=== PATIENT | female | born 1950 | race Two or more races ===

== ENCOUNTER 2023-07-12 10:16 | Outpatient (OUT) | payer MEDICARE, SELFPAY ==
--- NOTE | 2023-07-12 10:45 | MM_ITS ---
Patient Name: ANGELA JUAREZ MR#: [id number] : 1950 Exam Date: 07/12/2023 Ordering Doctor: DR DAVID VALLEJO RADIOLOGY REPORT PROCEDURE: MM TOMOSYNTHESIS SCREENING BI COMPARISON: MG MAMM SCREEN 3D SANDY CAD, 07/07/2022. MG MAMM SCREEN 3D SANDY CAD, 06/26/2021. MG MAMM SCREEN SANDY W CAD, 06/25/2020. MG MAMM SCREEN SANDY W CAD, 02/24/2013. INDICATIONS: screening Calculator Name NCI Breast Cancer Risk Assessment Tool 5 Year Breast Cancer Risk 1.30% Lifetime Breast Cancer Risk 3.50% Personal Breast Cancer No Personal Ovarian Cancer No Treatments None Family Cancers Brother with colon cancer at age 63; Daughter with uterine cancer at age 4; Father with prostate cancer at age 65; Brother with leukemia cancer at age 50. LOCATION: [facility] BREAST COMPOSITION: Scattered areas fibroglandular density. FINDINGS: DIAGNOSTIC CATEGORY 1--NEGATIVE. RIGHT BREAST: No significant suspicious finding. No significant change has occurred. LEFT BREAST: No significant suspicious finding. No significant change has occurred. RECOMMENDATIONS: ROUTINE MAMMOGRAM AND CLINICAL EVALUATION IN 12 MONTHS. PLEASE NOTE: A NORMAL MAMMOGRAM DOES NOT EXCLUDE THE POSSIBILITY OF BREAST CANCER. A CLINICALLY SUSPICIOUS PALPABLE LUMP SHOULD BE BIOPSIED. Dictated by: Keron Ahmadi M.D. on 07/13/2023 at 13:08 Approved by: Keron Ahmadi M.D. on 07/13/2023 at 13:11
== END 2023-07-12 10:17 | disposition home or self-care (01) ==
LOC: MAMMO 10:16
PROVIDERS: PCP Family Medicine; Visit Provider Family Medicine
DX: Z12.31 Encounter for screening mammogram for malignant neoplasm of breast (principal); Z80.0 Family history of malignant neoplasm of digestive organs; Z80.8 Family history of malignant neoplasm of other organs or systems; Z80.42 Family history of malignant neoplasm of prostate; Z80.6 Family history of leukemia
CPT/HCPCS: 77063; 77067

== ENCOUNTER 2024-07-19 10:48 | Outpatient (OUT) | payer MEDICARE, SELFPAY ==
--- NOTE | 2024-07-19 10:51 | MM_ITS ---
Patient Name: ANGELA JUAREZ MR#: [id number] : 1950 Exam Date: 07/19/2024 Ordering Doctor: DR DAVID VALLEJO RADIOLOGY REPORT PROCEDURE: MM TOMOSYNTHESIS SCREENING BI COMPARISON: MG MAMM SCREEN 3D SANDY CAD, 07/07/2022. MM TOMOSYNTHESIS SCREENING BI, 07/12/2023. INDICATIONS: Screening for malignant neoplasm Calculator Name NCI Breast Cancer Risk Assessment Tool 5 Year Breast Cancer Risk 1.30% Lifetime Breast Cancer Risk 3.30% Personal Breast Cancer No Personal Ovarian Cancer No Treatments None Family Cancers Brother with colon cancer at age 63; Daughter with uterine cancer at age 4; Father with prostate cancer at age 65; Brother with leukemia cancer at age 50. LOCATION: [facility] BREAST COMPOSITION: There are scattered areas of fibroglandular density. FINDINGS: DIAGNOSTIC CATEGORY 2--BENIGN FINDING. NO CHANGE FROM COMPARISON. Scattered benign-appearing calcifications are present. Scattered benign-appearing lymph nodes are present. RIGHT BREAST: No significant suspicious finding. LEFT BREAST: No significant suspicious finding. RECOMMENDATIONS: ROUTINE MAMMOGRAM AND CLINICAL EVALUATION IN 12 MONTHS. PLEASE NOTE: A NORMAL MAMMOGRAM DOES NOT EXCLUDE THE POSSIBILITY OF BREAST CANCER. A CLINICALLY SUSPICIOUS PALPABLE LUMP SHOULD BE BIOPSIED. Dictated by: Darryl Conn MD on 07/19/2024 at 13:54 Approved by: Darryl Conn MD on 07/19/2024 at 13:58
--- OUTSIDE RECORDS SUMMARY | 2024-07-19 10:58 | XMS_ITS | CCD ---
Author Organization [facility] Care Team Providers Care Forensic Psychologist Name Role Phone Dano Plasencia Unavailable DO Jeff Orellana Primary Care Provider [phone] MD Dano Plasencia Attending Provider [phone] JEFF ORELLANA Primary Care Physician GENEVIEVE, DR JEFF Childress Admitting Unavailable FURLONG, DR JEFF Childress Attending Unavailable FURLONG, DR JEFF Childress Primary Care Unavailable FURLONG, DR JEFF Childress Consulting Unavailable Furlong Jeff DIANE Primary Care Provider [phone] JEFF ORELLANA Referring Unavailable FURLONGJEFF Primary Care Unavailable MIHIR MCGEE Referring Unavailable FURLONG, JEFF Childress Primary Care Unavailable NEO RIVERA Attending Unavailab le JEFF ORELLANA Attending Unavailable FURLOJEFF NICHOLAS Referring Unavailable FURLONG, JEFF Childress Primary Care Unavailable JOVANALONG, JEFF Childress Referring Unavailable FURLONG, JEFF Childress Primary Care Unavailable FURLONGJEFF Attending Unavailable JOVANALONG, JEFF Childress Referring Unavailable FURLONG, JEFF Childress Primary Care Unavailable JovanaloDO Jeff nicholas Primary Care Provider MD Dano Plasencia Attending Provider Dano Plasencia Attending Unavailable Jeff Orellana Primary Care Unavailable Dano Plasencia Admitting Unavailable Dano Plasencia Attending Unavailable Jeff Orellana Primary Care Unavailable Dano Plasencia Admitting Unavailable Allergies Allergy Classification Reported Allergen(s) Allergy Type Date of Onset Reaction(s) Facility (6 sources) Ciprofloxacin; Translations: [ciprofloxacin] Drug Allergy 2 Swelling, Angioedema (disorder) [facility] (2 sources) Ciprofloxacin; Translations: [Cipro] Drug Allergy 6 [facility] (9 sources) Ciprofloxacin; Translations: [CIPROFLOXACIN HCL] Drug Allergy 0 Angioedema PST [employer] Work Phone: (1 source) Ciprofloxacin Drug Allergy [address] [facility] Repository Medications Current Medications Medication Drug Class(es) Dates Sig (Normalized) Sig (Original) aspirin 81 mg delayed release oral tablet (6 sources) Platelet Aggregation Inhibitor, Nonsteroidal Anti-inflammatory Drug Start: 02-23-2023 take 1 tablet by mouth in the morning aspirin 81 mg Indications: Type 2 diabetes mellitus without complication, without long-term current use of insulin ([facility]) Take 1 tablet (81 mg total) by mouth in the morning. 150 tablet 2 02/23/2023 Active 0.5 ml dulaglutide 1.5 mg/ml auto-injector (4 sources) GLP-1 Receptor Agonist Start: 05-02-2024 Dulaglutide (Trulicity) 0.75 mg/0.5 mL pen injector Active 0.75 MG SUBCUT every week May 02, 2024 12:00am Start: 02-10-2024 inject 1.5 mg by sub cutaneous injection every week dulaglutide (TRULICITY) 1.5 mg/0.5 mL pen injector Indications: Type 2 diabetes mellitus without complication, without long-term current use of insulin ([facility]) Inject 1.5 mg under the skin once a week. 2 mL 5 02/10/2024 Active glipiZIDE 5 mg oral tablet (15 sources) Sulfonylurea Start: 05-18-2024 take 1 tablet by mouth in the morning, then take 1 tablet by mouth at bedtime glipiZIDE (GLUCOTROL) 5 mg tablet Take 1 tablet (5 mg total) by mouth in the morning and 1 tablet (5 mg total) before bedtime. 60 tablet 3 05/18/2024 Active Start: 02-09-2024 End: 05-18-2024 take 0.5 tablet by mouth in the morning, then take 0.5 tablet by mouth before mealtime glipiZIDE (GLUCOTROL) 10 mg tablet Indications: Type 2 diabetes mellitus without complication, without long-term current use of insulin [place] Take 0.5 tablets (5 mg total) by mouth in the morning and 0.5 tablets (5 mg total) in the evening. Take before meals. 02/09/2024 05/18/2024 Discontinued (Dose adjustment) Start: 06-02-2023 take 1 tablet by branden th three times daily before mealtime glipiZIDE (GLUCOTROL) 10 mg tablet TAKE 1 TABLET BY MOUTH THREE TIMES DAILY BEFORE MEAL(S) 270 tablet 1 06/02/2023 Active Start: 09-11-2020 take 10 mg by mouth once daily Glipizide Active 10 MG PO Daily October 27, 2021 12:00am glipiZIDE 10 MG as directed Orally tid Active glipiZIDE Active levothyroxine sodium 0.1 mg oral tablet (15 sources) l-Thyroxine Start: 12-08-2023 take 1 tablet by mouth once daily levothyroxine (SYNTHROID, LEVOTHROID) 100 MCG tablet Take 1 tablet by mouth once daily 90 tablet 2 12/08/2023 Active Start: 10-27-2021 End: 08-16-2023 take 1 tablet by mouth once daily Levothyroxine (Euthyrox) 100 mcg tablet Active 100 MCG PO Daily October 27, 2021 12:00am Start: 09-11-2020 take 1 tablet by branden th once daily Euthyrox 112 mcg (0.112 mg) oral tablet mcg tab(s), Oral, Daily, Refills(s) 0 Start Date: 09/11/20 Status: Ordered take 1 tablet by branden th once daily in the morning Levothyroxine Sodium 100 MCG 1 tablet in the morning on an empty stomach Orally Once a day Active Levothyroxine So dium Active lidocaine 0.05 mg/mg medicated patch (3 sources) Antiarrhythmic, Amide Local Anesthetic Start: 04-21-2023 apply 1 dose transdermal route once daily, then apply 1 dose transdermal route every twenty-four hours lidocaine (LIDODERM) 5 % Place 1 patch on the skin daily. Remove & Discard patch within 24 hours or as directed by MD Dunn patch 0 04/21/2023 Active lisinopril 40 mg oral tablet (16 sources) Angiotensin Converting Enzyme Inhibitor Start: 06-07-2024 take 1 tablet by mouth in the morning lisinopriL (PRINIVIL,ZESTR IL) 40 mg tablet Indications: Essential hypertension, benign TAKE 1 TABLET BY MOUTH IN THE MORNING 90 tablet 3 06/07/2024 Active Start: 12-02-2023 End: 06-07-2024 take 1 tablet by mouth in the morning lisinopriL (PRINIVIL,ZESTRIL) 40 mg tablet Indications: Essential hypertension, benign take 1 tablet by mouth in the morning 90 tablet 1 12/02/2023 06/07/2024 Discontinued Start: 08-25-2022 End: 09-05-2023 take 1 tablet by mouth in the morning lisinopriL (PRINIVIL,ZESTRIL) 40 mg tablet Indications: Essential hypertension, benign TAKE 1 TABLET BY MOUTH IN THE MORNING 90 tablet 0 09/05/2023 Active Start: 10-27-2021 take 10 mg by mouth once daily Lisinopril Active 10 MG PO Daily October 27, 2021 12:00am Start: 09-11-2020 take 1 mg by mouth o nce daily lisinopril 20 mg Tab mg tab(s), Oral, Daily, Refills(s) 0 Start Date: 09/11/20 Status: Ordered Lisinopril Activ e metFORMIN hydrochloride 1000 mg oral tablet (16 sources) Biguanide Start: 02-19-2024 End: 05-18-2024 take 1 tablet by mouth twice daily metFORMIN (GLUCOPHAGE) 1000 mg tablet Take 1 tablet by mouth twice daily 180 tablet 05/18/2024 Active Start: 09-11-2020 End: 08-16-2023 take 1000 mg by mouth twice daily Metformin Active 1000 MG PO Twice daily October 27, 2021 12:00am metFORMIN HCl Ac tive naproxen sodium 220 mg oral tablet (6 sources) Nonsteroidal Anti-inflammatory Drug Start: 02-23-2023 take 1 tablet by mouth every twelve hours as needed for pain naproxen sodium (ALEVE) 220 mg tablet Take 1 tablet (220 mg total) by mouth every 12 (twelve) hours as needed for pain. 30 tablet 02/23/2023 Active rosuvastatin calcium 20 mg oral tablet (14 sources) HMG-CoA Reductase Inhibitor Start: 10-27-2021 take 1 tablet by mouth once daily rosuvastatin (CRESTOR) 20 mg tablet Take 1 tablet by mouth once daily 90 tablet 1 04/16/2024 Active Start: 09-11-2020 take 1 mg by mouth once daily rosuvastatin 10 mg Tab mg tab(s), Oral, Daily, Refills(s) 0 Start Date: 09/11/20 Status: Ordered Rosuvastatin Pedro cium Active Vitamin B Complex (4 sources) Start: 09-07-2023 take 1 tablet by branden th in the morning b complex vitamins tablet Take 1 tablet by mouth in the morning. 09/07/2023 Active Start: 09-07-2023 take 1 tablet by branden th in the morning b complex vitamins tablet Take 1 tablet by mouth in the morning. 0 09/07/2023 Active Vitamin B Complex oral capsule (1 source) Start: 09-27-2023 Vitamin B Comp jennifer oral capsule Oral, Daily, Refill(s) 0 Start Date: 09/27/23 Status: Ordered Vitamin D 50,000 intl units (1.25 mg) oral capsule (2 sources) Start: 09-11-2020 take 1 capsule by mouth once daily Vitamin D 50,000 intl units (1.25 mg) oral capsule International_Unit cap(s), Oral, Daily, Refills(s) 0 Start Date: 09/11/20 Status: Ordered Problems Active Problems Problem Classification Problem Date Documented Date Episodic/Chronic Abdominal pain (8 sources) Abdominal discomfort; Translations: [Unspecified abdominal pain] Onset: 10-16-2021 Resolved: 10-16-2021 Episodic Diabetes mellitus without complication (12 sources) Diabetes mellitus; Translations: [Type 2 diabetes mellitus without complications] Onset: 08-25-2022 09-11-2020 Chronic Disorders of lipid metabolism (8 sources) Hyperlipidemia; Translations: [Hyperlipidemia, unspecified] Onset: 08-25-2022 09-11-2020 Chronic Diverticulosis and diverticulitis (8 sources) Diverticular disease; Translations: [Diverticulosis of large intestine] Onset: 02-13-2020 09-11-2020 Chronic Essential hypertension (13 sources) Benign essential hypertension; Translations: [Essential (primary) hypertension] Onset: 08-25-2022 09-11-2020 Chronic Hepatitis (2 sources) Steatohepatitis; Translations: [Nonalcoholic steatohepatitis (STRAUSS)] 05-02-2024 Chronic Nutritional deficiencies (8 sources) Vitamin D deficiency; Translations: [Vitamin D deficiency, unspecified] Onset: 08-25-2022 09-11-2020 Chronic Other diseases of bladder and urethra (1 source) Detrusor overactivity; Translations: [Overactive bladder] Onset: 09-27-2023 Chronic Other diseases of bladder and urethra (4 sources) Overactive bladder; Translations: [Overactive bladder] Onset: 02-08-2024 09-27-2023 Chronic Other liver diseases (4 sources) Steatosis of liver; Translations: [Fatty (change of) liver, not elsewhere classified] 05-02-2024 Chronic Other liver diseases (4 sources) Fatty (change of) liver, not elsewhere classified; Translations: [Other chronic nonalcoholic liver disease] Onset: 10-16-2021 Resolved: 10-16-2021 Chronic Other liver diseases (1 source) Cirrhosis of liver; Translations: [Unspecified cirrhosis of liver] 05-02-2024 Chronic Other liver diseases (1 source) Unspecified cirrhosis of liver; Translations: [Cirrhosis of liver without mention of alcohol] 05-02-2024 Chronic Other nervous system disorders (6 sources) Difficulty walking; Translations: [Difficulty in walking, not elsewhere classified] Onset: 03-09-2023 04-21-2023 Chronic Other nutritional; endocrine; and metabolic disorders (7 sources) Obesity caused by energy imbalance; Translations: [Other obesity due to excess calories] Onset: 02-23-2023 02-23-2023 Chronic Other nutritional; endocrine; and metabolic disorders (1 source) Other obesity due to excess calories; Translations: [Other obesity due to excess calories] Onset: 02-23-2023 Chronic Other nutritional; endocrine; and metabolic disorders (1 source) Body mass index (BMI) 33.0-33.9, adult; Translations: [Body mass index (BMI) 33.0-33.9, adult] Onset: 02-23-2023 Chronic Residual codes; unclassified (1 source) Family history of leukemia; Translations: [FAMILY HISTORY OF LEUKEMIA] Onset: 07-15-2022 Episodic Residual codes; unclassified (1 source) Family history of malignant neoplasm of prostate; Translations: [FAMILY HX MALIG NEOPLASM PROSTATE] Onset: 07-15-2022 Episodic Residual codes; unclassified (1 source) Family history of malignant neoplasm of other genital organs; Translations: [FAM HX MALIG NEOPLSM OTH GENIT ORGN] Onset: 07-15-2022 Episodic Thyroid disorders (11 sources) Hypothyroidism; Translations: [Hypothyroidism, unspecified] Onset: 08-25-2022 09-11-2020 Chronic Unclassified (1 source) Low blood sugars Onset: 12-27-2023 Past or Other Problems Problem Classification Problem Date Documented Date Episodic/Chronic Anal and rectal conditions (6 sources) Rectal pain; Translations: [Other specified diseases of anus and rectum] Onset: 03-09-2023 04-21-2023 Episodic Calculus of urinary tract (11 sources) Kidney stone; Translations: [Calculus of kidney] Onset: 05-03-2022 Episodic Genitourinary symptoms and ill-defined conditions (19 sources) Retention of urine; Translations: [Retention of urine, unspecified] Onset: 05-03-2022 Episodic Immunizations and screening for infectious disease (2 sources) Encounter for immunization; Translations: [Other specified vaccinations against streptococcus pneumoniae [pneumococcus]] Onset: 09-07-2023 09-07-2023 Episodic Mood disorders (6 sources) Mood disorders Onset: 05-26-2023 Resolved: 02-08-2024 05-26-2023 Other and unspecified benign neoplasm (6 sources) Polyp of ascending colon; Translations: [Polyp of colon] Onset: 02-13-2020 02-17-2022 Episodic Other and unspecified benign neoplasm (6 sources) History of polyp of colon; Translations: [Personal history of colonic polyps] Onset: 01-24-2022 01-24-2022 Episodic Other screening for suspected conditions (not mental disorders or infectious disease) (10 sources) Encounter for screening mammogram for malignant neoplasm of breast; Translations: [Patient encounter status] Onset: 09-26-2019 Episodic Sprains and strains (4 sources) Sprain of ligament of tarsometatarsal joint; Translations: [Sprain of tarsometatarsal ligament of left foot, subsequent encounter] Onset: 09-07-2023 09-07-2023 Episodic Results Test Name Value Interpretation Reference Range Facility US abdomen [facility] 05-10-2 024 US abdomen limited [facility] [address] [place] [id number] Ultrasound Report Signed Patient: Angela Juarez MR#: [id number] 6 : 1950 Acct:[id number] Age/Sex: 74 / F ADM Date: 05/10/24 Loc: Room: Type: [facility] Attending Dr: Dano Plasencia MD Ordering Provider: Dano Plasencia MD Date of Service: 05/10/24 US/US abdomen limited: K76.0 - Fatty (change of) liver, not elsewhere classified Copies to: Dano Plasencia MD LIMITED ABDOMINAL ULTRASOUND WITH ASSESSMENT OF RIGHT UPPER QUADRANT HISTORY: Fatty liver COMPARISON: None Negative ultrasound Flannery's sign reported. COMMON BILE DUCT: Mild 6 mm prominence of common bile duct. LIVER CONTOUR: Normal. LIVER PARENCHYMA: Hepatic steatosis. HEPATIC LESION: None INTRAHEPATIC BILIARY DUCTAL DILATATION No ductal dilatation identified. GALLSTONES: Shadowing gallstones GALLBLADDER SLUDGE: No gallbladder sludge. GALLBLADDER WALL: Normal thickness PERICHOLECYSTIC FLUID: None Pancreas: Unremarkable PORTAL VEIN: Normal blood flow. Liver size: Normal No RIGHT hydronephrosis identified. US/US abdomen limited IMPRESSION: Hepatic steatosis. Mild prominence of common bile duct. No intraluminal abnormality. No intrahepatic biliary ductal dilatation. Cholelithiasis. Impression dictated by: Chris Rankin M.D.05/10/2024 12:59 PM Dictation Location: [place] [address] Tech: Evita Hope Transcribed By: [facility] 05/10/24 1259 Dictated By: Chris Rankin DO 05/10/24 1257 Signed By: 05/10/24 1259 Normal [facility] [place] 10-04-2023 Screens [id number] Normal [facility] Ambulatory Visit Summaryon 0 09-27-2023 Ambulatory Visit Summary ANGELA JUAREZ :1950 Visit Date:09/27/2023 Ambulatory Visit Instructions Your Diagnosis Kidney stones OAB (overactive bladder) Tests Performed XR Abdomen 1 View -- Results Pending -- Please visit your patient portal for your results or contact your primary care physician. Your Care Team Attending Physician - LUCY RIVERA PA-C Primary Care Physician - JEFF ORELLANA DO This Is Your Medications List Contact prescribing physician if questions or concerns ergocalciferol (Vitamin D 50,000 intl units (1.25 mg) oral capsule) glipiZIDE (glipiZIDE 10 mg Tab) levothyroxine (Euthyrox 112 mcg (0.112 mg) oral tablet) lisinopril (lisinopril 20 mg Tab) metformin (metformin 1000 mg oral tablet) multivitamin (Vitamin B Complex oral capsule) rosuvastatin (rosuvastatin 10 mg Tab) Procedures Performed ESWL of kidney (10/02/2020), Colonoscopy (02/13/2020), Hysterectomy, Tubal ligation. Discharge Vitals Temperature (Temporal Artery) 36.8 ?C Heart Rate (Peripheral) 92 Blood Pressure 138/84 Height 153 cm Height 60 in Weight 81 kg Weight 178.2 lb BMI 34.6 What to do next You Need to Schedule the Following Appointments Follow Up with LUCY RIVERA PA-C, URL When: Where[facility] [address] [facility] [place] [address] Medications What How Much When Instructions Unchanged ergocalciferol (Vitamin D 50,000 intl units (1.25 mg) oral capsule) Every day Contact prescribing physician if questions or concerns Unchanged glipiZIDE (glipiZIDE 10 mg Tab) Every day Contact prescribing physician if questions or concerns Unchanged levothyroxine (Euthyrox 112 mcg (0.112 mg) oral tablet) Every day Contact prescribing physician if questions or concerns Unchanged lisinopril (lisinopril 20 mg Tab) Every day Contact prescribing physician if questions or concerns Unchanged metformin (metformin 1000 mg oral tablet) 2 times a day Contact prescribing physician if questions or concerns Unchanged multivitamin (Vitamin B Complex oral capsule) Every day Contact prescribing physician if questions or concerns Unchanged rosuvastatin (rosuvastatin 10 mg Tab) Every day Contact prescribing physician if questions or concerns Allergies Cipro (Angioedema) Problems Ongoing - Any problem that you are currently receiving treatment for. Benign essential hypertension Diabetes Diverticulosis Foul smelling urine Hyperlipidemia Hypothyroidism Incomplete bladder emptying Kidney stones OAB (overactive bladder) Vitamin D deficiency Weak urine stream Patient Survey You may receive a survey via text or e-mail asking about your office visit. Please share your experience with us by completing your survey. We appreciate your feedback and thank you for choosing us for your care. Education Materials Dietary Guidelines to Help Prevent Kidney Stones Kidney stones are deposits of minerals and salts that form inside your kidneys. Your risk of developing kidney stones may be greater depending on your diet, your lifestyle, the medicines you take, and whether you have certain medical conditions. Most people can lower their risks of developing kidney stones by following these dietary guidelines. Your dietitian may give you more specific instructions depending on your overall health and the type of kidney stones you tend to develop. What are tips for following this plan? Reading food labels ? Choose foods with no salt added or low-salt labels. Limit your salt (sodium) intake to less than 1,500 mg a day. ? Choose foods with calcium for each meal and snack. Try to eat about 300 mg of calcium at each meal. Foods that contain 200?500 mg of calcium a serving include: ? 8 oz (237 mL) of milk, calcium-fortifiedno n-dairy milk, and calcium-fortifiedfr uit juice. Calcium-fortified means that calcium has been added to these drinks. ? 8 oz (237 mL) of kefir, yogurt, and soy yogurt. ? 4 oz (114 g) of tofu. ? 1 oz (28 g) of cheese. ? 1 cup (150 g) of dried figs. ? 1 cup (91 g) of cooked broccoli. ? One 3 oz (85 g) can of sardines or mackerel. Most people need 1,000?1,500 mg of calcium a day. Talk to your dietitian about how much calcium is recommended for you. Shopping ? Buy plenty of fresh fruits and vegetables. Most people do not need to avoid fruits and vegetables, even if these foods contain nutrients that may contribute to kidney stones. ? When shopping for convenience foods, choose: ? Whole pieces of fruit. ? Pre-made salads with dressing on the side. ? Low-fat fruit and yogurt smoothies. ? Avoid buying frozen meals or prepared deli foods. These can be high in sodium. ? Look for foods with live cultures, such as yogurt and kefir. ? Choose high-fiber grains, such as whole-wheat breads, oat bran, and wheat cereals. Cooking ? Do not add salt to food when cooking. Place a salt shaker on the table and allow ea (more content not included)... Normal [facility] Patient Educationon 09-27-19 Patient Education Nephrology Dietary Guidelines to Help Prevent Kidney Stones Kidney stones are deposits of minerals and salts that form inside your kidneys. Your risk of developing kidney stones may be greater depending on your diet, your lifestyle, the medicines you take, and whether you have certain medical conditions. Most people can lower their risks of developing kidney stones by following these dietary guidelines. Your dietitian may give you more specific instructions depending on your overall health and the type of kidney stones you tend to develop. What are tips for following this plan? Reading food labels ? Choose foods with no salt added or low-salt labels. Limit your salt (sodium) intake to less than 1,500 mg a day. ? Choose foods with calcium for each meal and snack. Try to eat about 300 mg of calcium at each meal. Foods that contain 200?500 mg of calcium a serving include: ? 8 oz (237 mL) of milk, calcium-fortifiedno n-dairy milk, and calcium-fortifiedfr uit juice. Calcium-fortified means that calcium has been added to these drinks. ? 8 oz (237 mL) of kefir, yogurt, and soy yogurt. ? 4 oz (114 g) of tofu. ? 1 oz (28 g) of cheese. ? 1 cup (150 g) of dried figs. ? 1 cup (91 g) of cooked broccoli. ? One 3 oz (85 g) can of sardines or mackerel. Most people need 1,000?1,500 mg of calcium a day. Talk to your dietitian about how much calcium is recommended for you. Shopping ? Buy plenty of fresh fruits and vegetables. Most people do not need to avoid fruits and vegetables, even if these foods contain nutrients that may contribute to kidney stones. ? When shopping for convenience foods, choose: ? Whole pieces of fruit. ? Pre-made salads with dressing on the side. ? Low-fat fruit and yogurt smoothies. ? Avoid buying frozen meals or prepared deli foods. These can be high in sodium. ? Look for foods with live cultures, such as yogurt and kefir. ? Choose high-fiber grains, such as whole-wheat breads, oat bran, and wheat cereals. Cooking ? Do not add salt to food when cooking. Place a salt shaker on the table and allow each person to add their own salt to taste. ? Use vegetable protein, such as beans, textured vegetable protein (TVP), or tofu, instead of meat in pasta, casseroles, and soups. Meal planning ? Eat less salt, if told by your dietitian. To do this: ? Avoid eating processed or pre-made food. ? Avoid eating fast food. ? Eat less animal protein, including cheese, meat, poultry, or fish, if told by your dietitian. To do this: ? Limit the number of times you have meat, poultry, fish, or cheese each week. Eat a diet free of meat at least 2 days a week. ? Eat only one serving each day of meat, poultry, fish, or seafood. ? When you prepare animal proteins, cut pieces into small portion sizes. For most meat and fish, one serving is about the size of the palm of your hand. ? Eat at least five servings of fresh fruits and vegetables each day. To do this: ? Keep fruits and vegetables on hand for snacks. ? Eat one piece of fruit or a handful of berries with breakfast. ? Have a salad and fruit at lunch. ? Have two kinds of vegetables at dinner. ? You may be told to limit foods that are high in a substance called oxalate. These include: ? Spinach (cooked), rhubarb, beets, sweet potatoes, and [place] chard. ? Peanuts. ? Potato chips, [place] fries, and baked potatoes with skin on. ? Nuts and nut products. ? Chocolate. ? If you regularly take a diuretic medicine, make sure to eat at least 1 or 2 servings of fruits or vegetables that are high in potassium each day. These include: ? Avocado. ? Banana. ? Gooding, prune, carrot, or tomato juice. ? Baked potato. ? Cabbage. ? Beans and split peas. Lifestyle ? Drink enough fluid to keep your urine pale yellow. This is the most important thing you can do. Spread your fluid intake throughout the day. ? If you drink alcohol: ? Limit how much you have to: ? 0?1 drink a day for women who are not . ? 0?2 drinks a day for men. ? Know how much alcohol is in your drink. In the [place] one drink equals one 12 oz bottle of beer (355 mL), one 5 oz glass of wine (148 mL), or one 1? oz glass of hard liquor (44 mL). ? Lose weight if told by your health care provider. Work with your dietitian to find an eating plan and weight loss strategies that work best for you. General information ? Talk to your health care provider and dietitian about taking daily supplements. Depending on your health and the cause of your kidney stones, you may be told: ? Do not take high-dose supplements of vitamin C (1,000 mg a day or more). ? To take a calcium supplement. ? To take a daily probiotic supplement. ? To take other supplements such as magnesium, fish oil, or vitamin B6. ? Take jtvh-seg-wlcyamo and prescription medicines only as told by your health care provider. These include supplements. What foods sh (more content not included)... Normal [facility] Urology Office/Clinic Noteon 09-27-2023 Urology Office/Clinic Note Chief Complaint 1 year F/U with KUB HPI Staff 1 yr KUB done 09/20/23 @ [facility] Dx Kidney stones * No Urology medications B&BSQ 19 Dysuria: _Denies Incomplete bladder emptying: sometimes Hematuria: denies visible blood Frequency: once hour when home, at work 9-10x daily Urgency: _sometimes Nocturia: once nightly Stream: _denies hesitation, weaker stream Leaking: denies Post void dripping: denies Wearing pads/ Depends: denies Urge incontinence: denies Stress incontinence: denies Incontinence without Sensory Awareness: denies Abdominal pain: denies Flank pain: denies Sexual complaints: denies History of Present Illness staff HPI reviewed and agree. Review of Systems PHQ Score Initial Depression Screen Score: 0 SCORE no fever, chills, malaise, myalgia. no rash/lesions. no chest pain, palpitations, or SOB. no abdominal pain, nausea, vomiting. no unilateral calf swelling, redness, pain Physical Exam Vitals & Measurements T: 36.8 ?C(Temporal Artery) HR: 92(Peripheral) BP: 138/84 HT: 60 in HT: 153 cm WT: 81 kg WT: 178.2 lb BMI: 34.6 General: nontoxic, NAD Mouth: moist mucosa Lungs: normal respiratory effort Cardio: regular rate, good distal perfusion Abdomen: nondistended, no suprapubic distention or tenderness, no CVA tenderness Neurologic: Grossly normal Skin: No rashes or suspicious lesions Assessment/Plan PRW pt 1. Kidney stones (N20.0: Calculus of kidney) S/p Rt ESWL done 10/02/20 due to a 7 mm stone. KUB 05/01/22 shows suspected small bilateral renal stones 24 hour urine 08/05/22: just low volume. KUB done 09/15/22 shows small right renal stones measuring up to 0.3 cm in size, unchanged. KUB 09/20/23 similar right renal calculi measuring up to 3 mm. UA today negative Has been drinking water and adding lemon, usually 4-5oz/day. SG today 1.010 no recent flank pain, gross hematuria, stone pain/stone passage sx -Follow up in 18 mos with KUB 2. OAB (overactive bladder) (N32.81: Overactive bladder) BBS Latest A1c 08/2023 - 6.8 does admit to some intermittent constipation Voiding very frequently during the day. Typically once per hour. 1-2 cups of coffee per day, varies whether decaf or caff. discussed bladder irritants. discussed bowel/bladder connection. discussed OAB med options, common side effects/risks. -Not bothersome enough to warrant tx at this time. Pt to call if sx worsen. Follow-up With When Contact Information MIGUEL LARSON, LUCY Caceres, URL [address] [place] [address] Additional Instructions: 18 mos w/ KUB Patient Education Dietary Guidelines to Help Prevent Kidney Stones Documentation recorded by the david Chua accurately reflects the services(s) I performed and decisions made by me. Authenticated by Lucy Rivera PA-C on 09/27/2023 15:05:28. Radha Montanez, personally scribed for Lucy Rivera PA-C on 09/27/2023 14:57:46. . Problem List/Past Medical History Ongoing Benign essential hypertension Diabetes Diverticulosis Foul smelling urine Hyperlipidemia Hypothyroidism Incomplete bladder emptying Kidney stones OAB (overactive bladder) Vitamin D deficiency Weak urine stream Historical No qualifying data Procedure/Surgical History ESWL of kidney (10/02/2020), Colonoscopy (02/13/2020), Hysterectomy, Tubal ligation. Medications Euthyrox 112 mcg (0.112 mg) oral tablet, Oral, Daily glipiZIDE 10 mg Tab, Oral, Daily lisinopril 20 mg Tab, Oral, Daily metformin 1000 mg oral tablet, Oral, BID rosuvastatin 10 mg Tab, Oral, Daily Vitamin B Complex oral capsule, Oral, Daily Vitamin D 50,000 intl units (1.25 mg) oral capsule, Oral, Daily Allergies Cipro (Angioedema) Social History Alcohol - Denies Alcohol Use, 09/15/2020 Tobacco - Denies Tobacco Use, 09/15/2020 Former smoker, quit more than 30 days ago, quit 30 years ago Tobacco Use:., 09/27/2023 Family History COPD: Brother. Diabetes mellitus type 2: Brother. Epilepsy: Brother. Hypertension: Mother and Brother. Prostate cancer: Father. Stroke: Mother. Immunizations Vaccine Date Status pneumococcal 20-valent conjugate vaccine 09/07/2023 Recorded influenza virus vaccine, inactivated 05/19/2022 Recorded SARS-CoV-2 (COVID-19) mRNA-1273 vaccine 11/18/2021 Recorded SARS-CoV-2 (COVID-19) mRNA-1273 vaccine 10/23/2020 Recorded SARS-CoV-2 (COVID-19) mRNA-1273 vaccine 09/25/2020 Recorded influenza virus vaccine, inactivated 05/29/2020 Recorded influenza virus vaccine, inactivated 04/30/2020 Recorded influenza virus vaccine, inactivated 04/21/2020 Recorded Lab Results Ambulatory Point of Care Results Bilirubin Urine Dipstick: Negative (09/27/23 14:19:00) Blood Urine Dipstick: Negative (09/27/23 14:19:00) Glucose Urine Dipstick: Trace 100 mg/dl (09/27/23 14:19:00) Ketones Urine Dipstick: Negative (09/27/23 14:19:00) Leukocytes Ur (more content not included)... Normal [facility] Comment on above: Result Comment: Elec tronically Signed By: LUCY RIVERA PA-C\.br\Date and Time Signed: 09/27/23 15:05 EDT\.br\Electronically Co-Signed By: Radha Chua\.br\Date and Time Co-Signed: 09/27/23 14:58 EDT RAD - MISCon 09-21-2023 RAD - MISC [id number] 7B#[id number] Normal [facility] XR ABDOMEN AP 1 VWon 024 XR ABDOMEN AP 1 VW XR ABDOMEN AP 1 VW XR ABDOMEN AP 1 VW HISTORY: Nephrolithiasis COMPARISON: Abdominal radiographs 09/15/2022, 05/01/2022 TECHNIQUE: Frontal radiographs of the abdomen obtained. FINDINGS: Unremarkable bowel gas pattern. Unchanged radiopaque densities measuring up to 3 mm project over the right renal shadow. The left renal shadow is obscured by overlying bowel gas and fecal material. Multiple round densities project over the expected location of the left ureter; however, given stability, these are likely related to phleboliths. Additional phleboliths within the pelvis. Fluffy calcified density material adjacent to the greater trochanter of the right femur, similar to prior, this may be seen in hydroxyapatite deposition. IMPRESSION: Similar right renal calculi measuring up to 3 mm. Additional findings as described. Approved by Resident Chun Lira MD on 09/20/2023 2:33 PM IOg DO have personally reviewed the image(s) and agree with and/or edited the report 4 Finalized by Og Ponce DO on 09/20/2023 2:45 PM Normal [facility] BASIC METABOLIC PANLon 09-07 Anion gap [Moles/Vol] 10 mmol/L Normal 5-15 [facility] [employer] [facility] Comment on above: Performed By: #### B MP, 3016-3, 3024-7 #### [facility] ([id number]) [address], [address] [place] [address] Calcium [Mass/Vol] 9.5 mg/dL Normal 8.5-10.5 [facility] Comment on above: Performed By: #### Hayley RIVERA, 3015-3, 3023-7 #### [facility] ([id number]) [address], [address] [place] [address] Chloride [Moles/Vol] 106 mmol/L Normal 98-109 [facility] Comment on above: Performed By: #### Hayley RIVERA, 3015-3, 3023-7 #### [facility] ([id number]) [address], [address] [place] [address] CO2 [Moles/Vol] 26 mmol/L Normal 22-32 [facility] Comment on above: Performed By: #### Hayley RIVERA, 3015-3, 7 #### [facility] ([id number]) [address], [address] [place] [address] Creatinine [Mass/Vol] 0.86 mg/dL Normal 0.40-1.00 [facility] Comment on above: METHOD TRACEABLE TO IDMS STANDARD Result Comment: METH OD TRACEABLE TO IDMS STANDARD Performed By: #### Hayley RIVERA, 3015-3, 7 #### [facility] ([id number]) [address], [address] [place] [address] Glucose [Mass/Vol] 129 mg/dL High 65-99 [facility] Comment on above: Performed By: #### Hayley RIVERA, 3015-3, 3023-7 #### [facility] ([id number]) [address], [address] [place] [address] Potassium [Moles/Vol] 4.5 mmol/L Normal 3.5-5.0 [facility] Comment on above: Performed By: #### Hayley RIVERA, 3015-3, 3023-7 #### [facility] ([id number]) [address], [address] [place] [address] Sodium [Moles/Vol] 142 mmol/L Normal 134-146 [facility] Comment on above: Performed By: #### B MIGUEL, 3016-3, 3024-7 #### [facility] ([id number]) [address] [address] Urea nitrogen [Mass/Vol] 16 mg/dL Normal 5-27 [facility] Comment on above: Performed By: #### B MIGUEL, 3016-3, 3023-7 #### [facility] ([id number]) [address] [facility], [address] [address] GFR/1.73 sq M.predicted among non-blacks MDRD (S/P/Bld) [Vol rate/Area] 72 mL/min/{1.73_m2} Normal >59 [facility] Comment on above: Result Comment: Reported eGFR is based on the CKD-EPI 2020 equation that does not use a race coefficient. Performed By: #### B MIGUEL, 3016-3, 3023-7 #### [facility] ([id number]) [address] [address] Basic Metabolic Panelon 08-19 eGFR (CKD-EPI)non-race dependent 72 - PINF [facility] Comment on above: Reported eGFR is based on the CKD-EPI 1 equation that does not use a race coefficient. Interpretation and review of laboratory results Abnormal [facility] Free T4 [Mass/Vol]on 024 [facility] HGB A1C (GLYCO-HGB)on 2023 HbA1c (Bld) [Mass fraction] 6.8 % High 4.4-5.6 [facility] Comment on above: NOTE ADA Guidelines Result HgbA1c Normal : less than 5.7 % Prediabetes : 5.7 % to 6.4 % Diabetes : > 6.4 % Use with caution in patients with abnormal hemoglobin variants as the half-life of red blood cells and in vivo glycation rates are affected. Result Comment: NOTE ADA Guidelines Result HgbA1c Normal : less than 5.7 % Prediabetes : 5.7 % to 6.4 % Diabetes : > 6.4 % Use with caution in patients with abnormal hemoglobin variants as the half-life of red blood cells and in vivo glycation rates are affected. Performed By: #### Hayley RIVERA, 3016-3, 3024-7 #### [facility] ([id number]) [address], [address] [place] [address] Glucose [Mass/Vol] 148 mg/dL Normal [facility] Comment on above: Performed By: #### Hayley RIVERA, 6-3, 3024-7 #### [facility] ([id number]) [address], [address] [place] [address] Hemoglobin A1con 09-07-2023 Average glucose Estimated from glycated hemoglobin (Bld) [Mass/Vol] 148 mg/dL [facility] Interpretation and review of laboratory results Abnormal [facility] - Chemistry and C hemistry - challengeon 09-07-2023 Free T4 [Mass/Vol] 1.00 ng/dL Normal 0.61-1.60 [facility] Comment on above: Performed By: #### Hayley RIVERA, 3016-3, 3024-7 #### [facility] ([id number]) [address], [address] [place] [address] TSHon 09-07-2023 TSH Qn 2.41 m[IU]/L [facility] TSH Qnon 09-07-2023 [facility] TSH 2.41 uIU/mL Normal 0.49-4.67 [facility] Comment on above: Performed By: #### Hayley RIVERA, 3016-3, 3024-7 #### [facility] ([id number]) [address], [address] [place] [address] MG MAMM SCREEN 3D SANDY CADon 07-07-2022 MG MAMM SCREEN 3D SANDY CAD Patient: ANGELA JUAREZ Exam Date: 07/07/2022 : 1950 Gender:F Ordering : DR JEFF ORELLANA Admission #: [id number] Family : Order #: [id number] CLICK HERE TO VIEW EXAM RADIOLOGY REPORT PROCEDURE: MAMMOGRAM SCREENING 3D BILATERAL CAD COMPARISON: MG MAMM SCREEN SANDY W CAD, 06/25/2020. MG MAMM SCREEN 3D SANDY CAD, 06/26/2021. INDICATIONS: Calculator Name NCI Breast Cancer Risk Assessment Tool 5 Year Breast Cancer Risk 1.20% Lifetime Breast Cancer Risk 3.70% Personal Breast Cancer No Personal Ovarian Cancer No Treatments None Family Cancers Daughter with uterine cancer at age 4; Father with prostate cancer at age 65; Brother with leukemia cancer at age 50. LOCATION: [facility] BREAST COMPOSITION: Scattered areas fibroglandular density. FINDINGS: DIAGNOSTIC CATEGORY 1--NEGATIVE. NO CHANGE FROM COMPARISON ASSESSMENT. Scattered benign-appearing calcifications are present. Scattered benign-appearing lymph nodes are present. RIGHT BREAST: No significant suspicious finding. LEFT BREAST: No significant suspicious finding. RECOMMENDATIONS: ROUTINE MAMMOGRAM AND CLINICAL EVALUATION IN 12 MONTHS. PLEASE NOTE: A NORMAL MAMMOGRAM DOES NOT EXCLUDE THE POSSIBILITY OF BREAST CANCER. A CLINICALLY SUSPICIOUS PALPABLE LUMP SHOULD BE BIOPSIED. Dictated by: Darryl Conn MD on 07/15/2022 at 07:46 Approved by: Darryl Conn MD on 07/15/2022 at 07:57 Normal [facility] COMPREHENSIVE METABOLIC PANE Stan 03-11-2022 Albumin [Mass/Vol] 4.4 g/dL Normal 3.6-5.1 [facility] Comment on above: Performed By: #### 4 87, 45843, 6167 #### [facility] [address], [address] [place] [address] [employer] Custodian: Jacek Dodge MD Albumin/Globulin [Mass ratio] 1.5 {ratio} Normal 1.0-2.5 [facility] Comment on above: Performed By: #### 4 20, 16734, 0794 #### [facility] [address], [address] [place] [address] [employer] Custodian: Jacek Dodge MD ALP [Catalytic activity/Vol] 117 U/L Normal 37-153 [facility] Comment on above: Performed By: #### 4 96, 84605, 7600 #### [facility] of [address], [address] [place] [address] [employer] Custodian: Jacek Dodge MD ALT [Catalytic activity/Vol] 25 U/L Normal 6-29 [facility] Comment on above: Performed By: #### 4 96, 46383, 7600 #### [facility] of [address], [address] [place] [address] [employer] Custodian: Jacek Dodge MD AST [Catalytic activity/Vol] 35 U/L Normal 10-35 [facility] Comment on above: Performed By: #### 4 96, 37524, 7600 #### [facility] of [place] [address] [employer] Custodian: Jacek Dodge MD Bilirubin [Mass/Vol] 0.4 mg/dL Normal 0.2-1.2 [facility] Comment on above: Performed By: #### 4 96, 15879, 7600 #### [facility] of [address], [address] [place] [address] [employer] Custodian: Jacek Dodge MD BUN/CREATININE RATIO NOT APPLICABLE Normal 6-22 [facility] Comment on above: Performed By: #### 4 96, 29401, 7600 #### [facility] of [address], [address] [place] [address] [employer] Custodian: Jacek Dodge MD Calcium [Mass/Vol] 9.5 mg/dL Normal 8.6-10.4 [facility] Comment on above: Performed By: #### 4 96, 33679, 7600 #### [facility] of [place] [address] [employer] Custodian: Jacek Dodge MD Chloride [Moles/Vol] 105 mmol/L Normal 98-110 [facility] Comment on above: Performed By: #### 4 96, 42112, 7600 #### [facility] of [address], [address] [place] [address] [employer] Custodian: Jacek Dodge MD CO2 [Moles/Vol] 26 mmol/L Normal 20-32 [facility] Comment on above: Performed By: #### 4 96, 89835, 7600 #### [facility] [place] [address] [employer] Custodian: Jacek Ddoge MD Creatinine [Mass/Vol] 0.78 mg/dL Normal 0.50-1.[address] [facility] Comment on above: Performed By: #### 4 96, 25068, 7600 #### [facility] [address], [address] [place] [address] [employer] Custodian: Jacek Dodge MD GFR/1.73 sq M.predicted among non-blacks MDRD (S/P/Bld) [Vol rate/Area] 82 mL/min/{1.73_m2} Normal > OR = 60 [facility] Comment on above: Result Comment: The eGFR is based on the CKD-EPI 2020 equation. To calculate the new eGFR from a previous Creatinine or Cystatin C result, go to https://www.kidney.org/professionals/ kdoqi/gfr%5Fcalculator Performed By: #### 4 96, 68574, 7600 #### [facility] [place] [address] [employer] Custodian: Jacek Dodge MD Globulin (S) [Mass/Vol] 2.9 g/dL Normal 1.9-3.7 [facility] Comment on above: Performed By: #### 4 96, 39541, 7600 #### [facility] [place] [address] [employer] Custodian: Jacek Dodge MD Glucose [Mass/Vol] 157 mg/dL High 65-99 [facility] Comment on above: Result Comment: Fasting reference interval For someone without known diabetes, a glucose value >125 mg/dL indicates that they may have diabetes and this should be confirmed with a follow-up test. Performed By: #### 4 96, 52217, 7600 #### [facility] [place] [address] [employer] Custodian: Jacek Dodge MD Potassium [Moles/Vol] 4.2 mmol/L Normal 3.5-5.[address] [facility] Comment on above: Performed By: #### 4 96, 04823, 7600 #### [facility] [address], [address] [place] [address] [employer] Custodian: Jacek Dodge MD Protein [Mass/Vol] 7.3 g/dL Normal 6.1-8.1 [facility] Comment on above: Performed By: #### 4 96, 39471, 7600 #### [facility] [place] [address] [employer] Custodian: Jacek Dodge MD Sodium [Moles/Vol] 139 mmol/L Normal 135-146 [facility] Comment on above: Performed By: #### 4 96, 17980, 7600 #### [facility] [place] [address] [employer] Custodian: Jacek Dodge MD Urea nitrogen [Mass/Vol] 15 mg/dL Normal 7-25 [facility] Comment on above: Performed By: #### 4 96, 81426, 7600 #### [facility] [place] [address] [employer] Custodian: Jacek Dodge MD HEMOGLOBIN A1con 03-11-2022 HEMOGLOBIN A1c 7.8 % of total Hgb High <5.7 [facility] Comment on above: Result Comment: For someone without known diabetes, a hemoglobin A1c value of 6.5% or greater indicates that they may have diabetes and this should be confirmed with a follow-up test. For someone with known diabetes, a value <7% indicates that their diabetes is well controlled and a value greater than or equal to 7% indicates suboptimal control. A1c targets should be individualized based on duration of diabetes, age, comorbid conditions, and other considerations. Currently, no consensus exists regarding use of hemoglobin A1c for diagnosis of diabetes for children. Performed By: #### 4 96, 26735, 7600 #### [facility] [address], [address] [place] [address] [employer] Custodian: Jacek Dodge MD LIPID PANEL, [facility] 02-16 Cholesterol [Mass/Vol] 163 mg/dL Normal <200 [facility] Comment on above: Order Comment: FASTI NG:YES FASTING: YES Performed By: #### 4 96, 92850, 7600 #### [facility] [address], [address] [place] [address] [employer] Custodian: Jacek Dodge MD Cholesterol in HDL [Mass/Vol] 58 mg/dL Normal > OR = 50 [facility] Comment on above: Order Comment: FASTI NG:YES FASTING: YES Performed By: #### 4 96, 34875, 7600 #### [facility] [place] [address] [employer] Custodian: Jacek Dodge MD Cholesterol in LDL [Mass/Vol] 81 mg/dL Normal [facility] Comment on above: Order Comment: FASTI NG:YES FASTING: YES Result Comment: Refe rence range: <100 Desirable range <100 mg/dL for primary prevention; <70 mg/dL for patients with CHD or diabetic patients with > or = 2 CHD risk factors. LDL-C is now calculated using the Tree-Jasmyn calculation, which is a validated novel method providing better accuracy than the Friedewald equation in the estimation of LDL-C. Tree EMMANUEL et al. JESSICA. 2013;310(19): 3287-4159 (http://education.eLama.G2 Crowd/faq/HXJ831) Performed By: #### 4 96, 10618, 7600 #### [facility] [address], [address] [place] [address] [employer] Custodian: Jacek Dodge MD Cholesterol.total/Jeanine sterol in HDL [Mass ratio] 2.8 {ratio} Normal <5.0 [facility] Comment on above: Order Comment: FASTI NG:YES FASTING: YES Performed By: #### 4 96, 64762, 7600 #### [facility] [address], [address] [place] [address] [employer] Custodian: Jacek Dodge MD NON HDL CHOLESTEROL 105 mg/dL (calc) Normal <130 [facility] Comment on above: Order Comment: FASTI NG:YES FASTING: YES Result Comment: For patients with diabetes plus 1 major ASCVD risk factor, treating to a non-HDL-C goal of <100 mg/dL (LDL-C of <70 mg/dL) is considered a therapeutic option. Performed By: #### 4 96, 42925, 7600 #### [facility] [address], [address] [place] [address] [employer] Custodian: Jacek Dodge MD Triglyceride [Mass/Vol] 138 mg/dL Normal <150 [facility] Comment on above: Order Comment: FASTI NG:YES FASTING: YES Performed By: #### 4 96, 22429, 7600 #### [facility] [address], [address] [place] [address] [employer] Custodian: Jacek Dodge MD Basophils Auto (Bld) [#/Vol] Ordered By: Dano Plasencia on 02-09-2022 Basophils (Bld) [#/Vol] 0.0 10*3/uL 0.0-0.[address] [facility] Basophils/100 WBC Auto (Bld) Ordered By: Dano Plasencia on 02-09-2022 Basophils/100 WBC (Bld) 0.5 % . F [facility] Blood hemoglobin measurement (mass/volume)Ordered By: Dano Plasencia on 02-09-2022 Hemoglobin (Bld) [Mass/Vol] 10.8 g/dL 11.8-15.[address] [facility] Blood leukocytes automated c ount (number/volume)Ordered By: Dano Plasencia on 02-09-2022 WBC (Bld) [#/Vol] 7.5 10*3/uL 4.5-11.0 [facility] Body fluid albumin measureme nt (mass/volume)Ordered By: Dano Plasencia on 02-09-2022 Albumin (Body fld) [Mass/Vol] 3.8 g/dL 3.2-5.[address] [facility] Creatinine and Glomerular fi ltration rate.predicted panel (S/P/Bld)Ordered By: Dano Plasencia on 02-09-2022 Creatinine [Mass/Vol] 0.83 mg/dL 0.44-1.03 [facility] Eosinophils Auto (Bld) [#/Vo l]Ordered By: Dano Plasencia on 02-09-2022 Eosinophils (Bld) [#/Vol] 0.1 10*3/uL 0.0-0.[address] [facility] Eosinophils/100 WBC Auto (Bl d)Ordered By: Dano Plasencia on 02-09-2022 Eosinophils/100 WBC (Bld) 1.3 % . [facility] Erythrocyte distribution wid th Auto (RBC) [Ratio]Ordered By: Dano Plasencia on 02-09-2022 Erythrocyte distribution width (RBC) [Ratio] 13.7 % 11.9-15.[address] [facility] Estimated glomerular filtrat ion rate (GFR) non- AmericanOrdered By: Dano Plasencia on 02-09-2022 GFR/1.73 sq M.predicted among non-blacks MDRD (S/P/Bld) [Vol rate/Area] > 60 mL/Min [facility] Globulin Calc (S) [Mass/Vol] Ordered By: Dano Plasencia on 02-09-2022 Globulin (S) [Mass/Vol] 3.2 g/dL [facility] Hematocrit Auto (Bld) [Volum e fraction]Ordered By: Dano Plasencia on 02-09-2022 Hematocrit (Bld) [Volume fraction] 33.3 % 34.0-46.[address] [facility] Laboratory - CoagulationOrde red By: Dano Plasencia on 02-09-2022 PT Coag (PPP) [Time] 12.2 s 9.0-12.[address] [facility] - Hematology and Cell countsOrdered By: Dano Plasencia on 02-09-2022 Nucleated RBC/100 WBC (Bld) [Ratio] 0.1 % 0-0.[address] [facility] Lymphocytes Auto (Bld) [#/Vo l]Ordered By: Dano Plasencia on 02-09-2022 Lymphocytes (Bld) [#/Vol] 2.6 10*3/uL 1.00-4.[address] [facility] Lymphocytes/100 WBC Auto (Bl d)Ordered By: Dano Plasencia on 02-09-2022 Lymphocytes/100 WBC (Bld) 34.6 % . [facility] MCH Auto (RBC) [Entitic mass ]Ordered By: Dano Plasencia on 02-09-2022 MCH (RBC) [Entitic mass] 28.6 pg 24.7-34.[address] [facility] MCHC Auto (RBC) [Mass/Vol]Or dered By: Dano Plasencia on 02-09-2022 MCHC (RBC) [Mass/Vol] 32.5 g/dL 32.0-35.0 [facility] MCV Auto (RBC) [Entitic vol] Ordered By: Dano Plasencia on 02-09-2022 MCV (RBC) [Entitic vol] 88.1 fL 80-100 F [facility] Monocytes Auto (Bld) [#/Vol] Ordered By: Dano Plasencia on 02-09-2022 Monocytes (Bld) [#/Vol] 0.6 10*3/uL 0.0-0.[address] [facility] Monocytes/100 WBC Auto (Bld) Ordered By: Dano Plasencia on 02-09-2022 Monocytes/100 WBC (Bld) 7.8 % . F [facility] Neutrophils Auto (Bld) [#/Vo l]Ordered By: Dano Plasencia on 02-09-2022 Neutrophils (Bld) [#/Vol] 4.2 10*3/uL 1.8-7.[address] [facility] Neutrophils/100 WBC Auto (Bl d)Ordered By: Dano Plasencia on 02-09-2022 Neutrophils/100 WBC (Bld) 55.8 % . [facility] No Panel InformationOrdered By: Dano Plasencia on 02-09-2022 Estimated GFR () > 60 mL/Min [facility] Comment on above: GFR estimated refere nce range: According to KDOQI guidelines, <60 ml/min/1.73m2 is sufficient to diagnose a patient with chronic kidney disease. Pharmacy Creatinine Clearance (Chem N/A [facility] Platelet mean volume Auto (B ld) [Entitic vol]Ordered By: Dano Plasencia on 02-09-2022 Platelet mean volume (Bld) [Entitic vol] 8.8 fL 6.3-10.[address] [facility] Platelet poor plasma interna tional normalized ratio (INR) by coagulation assay (relatOrdered By: Dano Plasencia on 02-09-2022 INR Coag (PPP) [Relative time] 1.1 {INR} [facility] Comment on above: INR Therapeutic Rang e A) Pre- and Peroperative OAT started two weeks before surgery. NOT HIP SURGERY: 1.5 - 2.5 HIP SURGERY: 2 - 3 B) Primary and secondary prevention of venous THROMBOSIS: 2 - 3 C) Active venous thrombosis, pulmonary embolism and prevention of recurrent venous thrombosis: 2 - 3 D) Prevention of arterial thromboembolism including patients with mechanical heart valves: 3 - 4.5 Platelets Auto (Bld) [#/Vol] Ordered By: Dano Plasencia on 02-09-2022 Platelets (Bld) [#/Vol] 227 10*3/uL 150-[address] [facility] Protein [Mass/volume] in Ser um or PlasmaOrdered By: Dano Plasencia on 02-09-2022 Protein [Mass/Vol] 7.0 g/dL 6.1-7.9 [facility] RBC Auto (Bld) [#/Vol]Ordere d By: Dano Plasencia on 02-09-2022 RBC (Bld) [#/Vol] 3.78 10*6/uL 3.60-5.[address] [facility] Serum mitochondria M2 IgG an tibody assay (units/volume)Ordered By: Dano Plasencia on 02-09-2022 Mitochondria M2 IgG Qn (S) <20.0 Units 0.0-20.[address] [facility] Comment on above: Negative 0.0 - 20.0 Equivocal 20.1 - 24.9 Positive >24.9 Mitochondrial (M2) Antibodies are found in 90-96% of patients with primary biliary cirrhosis. Performed at: [facility] [employer] [id number] [employer]: Jai Parks PhD, Phone: [phone] Serum or plasma alanine laboy otransferase measurement without P-5'-P (enzymatic activiOrdered By: Dano Plasencia on 02-09-2022 ALT No additional P-5'-P [Catalytic activity/Vol] 25 U/L 10-[address] [facility] Serum or plasma albumin/glob ulin mass ratioOrdered By: Dano Plasencia on 02-09-2022 Albumin/Globulin [Mass ratio] 1.2 {ratio} [facility] Serum or plasma alkaline lino sphatase measurement (enzymatic activity/volume)Ordered By: Dano Plasencia on 02-09-2022 ALP [Catalytic activity/Vol] 97 U/L 32-[address] [facility] Serum or plasma aspartate am inotransferase measurement (enzymatic activity/volume)Ordered By: Dano Plasencia on 02-09-2022 AST [Catalytic activity/Vol] 38 U/L 10-[address] [facility] Serum or plasma calcium andrews urement (mass/volume)Ordered By: Dano Plasencia on 02-09-2022 Calcium [Mass/Vol] 10.4 mg/dL 8.2-10.2 [facility] Serum or plasma chloride marianna surement (moles/volume)Ordered By: Dano Plasencia on 02-09-2022 Chloride [Moles/Vol] 102 mmol/L 95-[address] [facility] Serum or plasma glucose andrews urement (mass/volume)Ordered By: Dano Plasencia on 02-09-2022 Glucose [Mass/Vol] 124 mg/dL 70-100 [facility] Comment on above: ADA recommended refe rence range Random Glucose Reference Range is dependent on time and content of last meal. Glucose of more than 200 mg/dL in a nonstressed, ambulatory subject supports the diagnosis of Diabetes Mellitus. Serum or plasma potassium me asurement (moles/volume)Ordered By: Dano Plasencia on 02-09-2022 Potassium [Moles/Vol] 4.4 mmol/L 3.5-5.1 [facility] Serum or plasma sodium measu rement (moles/volume)Ordered By: Dano Plasencia on 02-09-2022 Sodium [Moles/Vol] 137 mmol/L 136-146 [facility] Serum or plasma total biliru bin measurement (mass/volume)Ordered By: Dano Plasencia on 02-09-2022 Bilirubin [Mass/Vol] 0.5 mg/dL 0.3-1.[address] [facility] Serum or plasma total carbon dioxide measurement (moles/volume)Ordered By: Dano Plasencia on 02-09-2022 CO2 [Moles/Vol] 26.3 mmol/L 22.0-30.0 [facility] Serum or plasma urea nitroge n measurement (mass/volume)Ordered By: Dano Plasencia on 02-09-2022 Urea nitrogen [Mass/Vol] 11 mg/dL 04-[address] [facility] COMPREHENSIVE METABOLIC PANE Stan 08-27-2021 Albumin [Mass/Vol] 4.4 g/dL Normal 3.6-5.1 [facility] Comment on above: Performed By: #### 7 600, 32831, 23305 #### [facility] [place] [address] [employer] Custodian: Jacek Dodge MD Albumin/Globulin [Mass ratio] 1.6 {ratio} Normal 1.0-2.5 [facility] Comment on above: Performed By: #### 7 600, 89923, 51554 #### [facility] [place] [address] [employer] Custodian: Jacek Dodge MD ALP [Catalytic activity/Vol] 118 U/L Normal 37-153 [facility] Comment on above: Performed By: #### 7 600, 41048, 75824 #### [facility] [place] [address] [employer] Custodian: Jacek Dodge MD ALT [Catalytic activity/Vol] 31 U/L High 6-29 [facility] Comment on above: Performed By: #### 7 600, 63452, 96530 #### [facility] [place] [address] [employer] Custodian: Jacek Dodge MD AST [Catalytic activity/Vol] 40 U/L High 10-35 [facility] Comment on above: Performed By: #### 7 600, 76479, 76442 #### [facility] of [address], [address] [place] [address] [employer] Cust[employer]ian: Jacek Dodge MD Bilirubin [Mass/Vol] 0.5 mg/dL Normal 0.2-1.2 [facility] Comment on above: Performed By: #### 7 600, 17981, 89094 #### [facility] of [address], [address] [place] [address] [employer] Cust[employer]ian: Jacek Dodge MD BUN/CREATININE RATIO NOT APPLICABLE Normal 6-22 [facility] Comment on above: Performed By: #### 7 600, 55192, 76907 #### [facility] of [address], [address] [place] [address] [employer] Custodian: Jacek Dodge MD Calcium [Mass/Vol] 9.8 mg/dL Normal 8.6-10.4 [facility] Comment on above: Performed By: #### 7 600, 65043, 71924 #### [facility] of [address], [address] [place] [address] [employer] Custodian: Jacek Dodge MD Chloride [Moles/Vol] 103 mmol/L Normal 98-110 [facility] Comment on above: Performed By: #### 7 600, 50963, 82632 #### [facility] [place] [address] [employer] Custodian: Jacek Dodge MD CO2 [Moles/Vol] 27 mmol/L Normal 20-32 [facility] Comment on above: Performed By: #### 7 600, 55202, 02373 #### [facility] of [address], [address] [place] [address] [employer] Custodian: Jacek Dodge MD Creatinine [Mass/Vol] 0.82 mg/dL Normal 0.50-0.[address] [facility] [address] [facility] Comment on above: Result Comment: For patients >49 years of age, the reference limit for Creatinine is approximately 13% higher for people identified as -Guyanese. Performed By: #### 7 600, 57905, 94590 #### [facility] of [address], [address] [place] [address] [employer] Custodian: Jacek Dodge MD eGFR NON-AFR. AUSTRALIAN 73 mL/min/1.73m2 Normal > OR = 60 [facility] Comment on above: Performed By: #### 7 600, 32530, 56400 #### [facility] [address], [address] [place] [address] [employer] Custodian: Jacek Dodge MD GFR/1.73 sq M.predicted among blacks MDRD (S/P/Bld) [Vol rate/Area] 85 mL/min/{1.73_m2} Normal > OR = 60 [facility] Comment on above: Performed By: #### 7 600, 71897, 72045 #### [facility] [address], [address] [place] [address] [employer] Custodian: Jacek Dodge MD Globulin (S) [Mass/Vol] 2.8 g/dL Normal 1.9-3.7 [facility] Comment on above: Performed By: #### 7 600, 98552, 16244 #### [facility] [address], [address] [place] [address] [employer] Custodian: Jacek Dodge MD Glucose [Mass/Vol] 175 mg/dL High 65-99 [facility] Comment on above: Result Comment: Fasting reference interval For someone without known diabetes, a glucose value >125 mg/dL indicates that they may have diabetes and this should be confirmed with a follow-up test. Performed By: #### 7 600, 77298, 86116 #### [facility] [address], [address] [place] [address] [employer] Custodian: Jacek Dodge MD Potassium [Moles/Vol] 4.3 mmol/L Normal 3.5-5.[address] [facility] Comment on above: Performed By: #### 7 600, 70375, 83326 #### [facility] [address], [address] [place] [address] [employer] Custodian: Jacek Dodge MD Protein [Mass/Vol] 7.2 g/dL Normal 6.1-8.1 [facility] Comment on above: Performed By: #### 7 600, 64506, 26544 #### [facility] [place] [address] [employer] Custodian: Jacek Dodge MD Sodium [Moles/Vol] 139 mmol/L Normal 135-146 [facility] Comment on above: Performed By: #### 7 600, 91225, 56102 #### [facility] [place] [address] [employer] Custodian: Jacek Dodge MD Urea nitrogen [Mass/Vol] 13 mg/dL Normal 7-25 [facility] Comment on above: Performed By: #### 7 600, 76527, 20018 #### [facility] [place] [address] [employer] Custodian: Jacek Dodge MD LIPID PANEL, [facility] 08-18 Cholesterol [Mass/Vol] 198 mg/dL Normal <200 [facility] Comment on above: Order Comment: FASTI NG:YES FASTING: YES Performed By: #### 7 600, 13685, 54593 #### [facility] [place] [address] [employer] Custodian: Jacek Dodge MD Cholesterol in HDL [Mass/Vol] 59 mg/dL Normal > OR = 50 [facility] Comment on above: Order Comment: FASTI NG:YES FASTING: YES Performed By: #### 7 600, 99228, 55868 #### [facility] [place] [address] [employer] Custodian: Jacek Dodge MD Cholesterol in LDL [Mass/Vol] 110 mg/dL High [facility] Comment on above: Order Comment: FASTI NG:YES FASTING: YES Result Comment: Refe rence range: <100 Desirable range <100 mg/dL for primary prevention; <70 mg/dL for patients with CHD or diabetic patients with > or = 2 CHD risk factors. LDL-C is now calculated using the [employer]ines calculation, which is a validated novel method providing better accuracy than the Friedewald equation in the estimation of LDL-C. Tree EMMANUEL et al. JESSICA. 2013;310(19): 6256-5127 (http://education.Nulu/faq/ZBX058) Performed By: #### 7 600, 71973, 16720 #### [facility] [address], [address] [place] [address] [employer] Custodian: Jacek Dodge MD Cholesterol.total/Jeanine sterol in HDL [Mass ratio] 3.4 {ratio} Normal <5.0 [facility] Comment on above: Order Comment: FASTI NG:YES FASTING: YES Performed By: #### 7 600, 41843, 02923 #### [facility] [address], [address] [place] [address] [employer] Custodian: Jacek Dodge MD NON HDL CHOLESTEROL 139 mg/dL (calc) High <130 [facility] Comment on above: Order Comment: FASTI NG:YES FASTING: YES Result Comment: For patients with diabetes plus 1 major ASCVD risk factor, treating to a non-HDL-C goal of <100 mg/dL (LDL-C of <70 mg/dL) is considered a therapeutic option. Performed By: #### 7 600, 52847, 64173 #### [facility] [address], [address] [place] [address] [employer] Custodian: Jacek Dodge MD Triglyceride [Mass/Vol] 173 mg/dL High <150 [facility] Comment on above: Order Comment: FASTI NG:YES FASTING: YES Performed By: #### 7 600, 65333, 12338 #### [facility] [address], [address] [place] [address] [employer] Custodian: Jacek Dodge MD TSH+FREE T4on 08-27-2021 Free T4 [Mass/Vol] 1.5 ng/dL Normal 0.8-1.8 [facility] Comment on above: Performed By: #### 7 600, 50543, 63898 #### [facility] [address], [address] [place] [address] [employer] Custodian: Jacek Dodge MD TSH Qn 1.87 m[IU]/L Normal 0.40-4.50 [facility] Comment on above: Performed By: #### 7 600, 29496, 60527 #### [facility] [place] [address] [employer] Custodian: Jacek Dodge MD [facility] METABOLIC PANE [facility] 04-11-2021 Albumin [Mass/Vol] 4.5 g/dL Normal 3.6-5.1 [facility] Comment on above: Performed By: #### 1 0231, 10496 #### [facility] [place] [address] [employer] Custodian: Jacek Dodge MD Albumin/Globulin [Mass ratio] 1.5 {ratio} Normal 1.0-2.5 [facility] Comment on above: Performed By: #### 1 0231, 83142 #### [facility] [place] [address] [employer] Custodian: Jacek Dodge MD ALP [Catalytic activity/Vol] 126 U/L Normal 37-153 [facility] Comment on above: Performed By: #### 1 0231, 48293 #### [facility] [place] [address] [employer] Custodian: Jacek Dodge MD ALT [Catalytic activity/Vol] 38 U/L High 6-29 [facility] Comment on above: Performed By: #### 1 0231, 02337 #### [facility] of [place] [address] [employer] Custodian: Jacek Dodge MD AST [Catalytic activity/Vol] 39 U/L High 10-35 [facility] Comment on above: Performed By: #### 1 0231, 84994 #### [facility] [place] [address] [employer] Custodian: Jacek Dodge MD Bilirubin [Mass/Vol] 0.4 mg/dL Normal 0.2-1.2 [facility] Comment on above: Performed By: #### 1 0231, 58887 #### [facility] [address], [address] [place] [address] [employer] Custodian: Jacek Dodge MD BUN/CREATININE RATIO NOT APPLICABLE Normal 6-22 [facility] Comment on above: Performed By: #### 1 0231, 23398 #### [facility] [address], [address] [place] [address] [employer] Custodian: Jacek Dodge MD Calcium [Mass/Vol] 10.1 mg/dL Normal 8.6-10.4 [facility] Comment on above: Performed By: #### 1 023, 65274 #### [facility] [place] [address] [employer] Custodian: Jacek Dodge MD Chloride [Moles/Vol] 102 mmol/L Normal 98-110 [facility] Comment on above: Performed By: #### 1 023, 35179 #### [facility] [place] [address] [employer] Custodian: Jacek Dodge MD CO2 [Moles/Vol] 26 mmol/L Normal 20-32 [facility] Comment on above: Performed By: #### 1 023, 54767 #### [facility] [place] [address] [employer] Custodian: Jacek Dodge MD Creatinine [Mass/Vol] 0.75 mg/dL Normal 0.50-0.[address] [facility] [address] [facility] Comment on above: Result Comment: For patients >49 years of age, the reference limit for Creatinine is approximately 13% higher for people identified as -Guyanese. Performed By: #### 1 0231, 03901 #### [facility] [place] [address] [employer] Custodian: Jacek Dodge MD eGFR NON-AFR. AUSTRALIAN 81 mL/min/1.73m2 Normal > OR = 60 [facility] Comment on above: Performed By: #### 1 023, 64199 #### [facility] [place] [address] [employer] Custodian: Jacek Dodge MD GFR/1.73 sq M.predicted among blacks MDRD (S/P/Bld) [Vol rate/Area] 94 mL/min/{1.73_m2} Normal > OR = 60 [facility] Comment on above: Performed By: #### 1 1, 25391 #### [facility] [place] [address] [employer] Custodian: Jacek Dodge MD Globulin (S) [Mass/Vol] 3.1 g/dL Normal 1.9-3.7 [facility] Comment on above: Performed By: #### 1 230, 77782 #### [facility] [place] [address] [employer] Custodian: Jacek Dodge MD Glucose [Mass/Vol] 135 mg/dL Normal 65-139 [facility] Comment on above: Result Comment: Non-fasting reference interval For someone without known diabetes, a glucose value >125 mg/dL indicates that they may have diabetes and this should be confirmed with a follow-up test. Performed By: #### 1 230, 41754 #### [facility] [place] [address] [employer] Custodian: Jacek Dodge MD Potassium [Moles/Vol] 4.6 mmol/L Normal 3.5-5.[address] [facility] Comment on above: Performed By: #### 1 230, 28487 #### [facility] [place] [address] [employer] Custodian: Jacek Dodge MD Protein [Mass/Vol] 7.6 g/dL Normal 6.1-8.1 [facility] Comment on above: Performed By: #### 1 023, 73392 #### [facility] [place] [address] [employer] Custodian: Jacek Dodge MD Sodium [Moles/Vol] 137 mmol/L Normal 135-146 [facility] Comment on above: Performed By: #### 1 0231, 41193 #### [facility] [place] [address] [employer] Custodian: Jacek Dodge MD Urea nitrogen [Mass/Vol] 13 mg/dL Normal 7-25 [facility] Comment on above: Performed By: #### 1 0231, 89874 #### [facility] [place] [address] [employer] Custodian: Jacek Dodge MD TSH+FREE T4on 04-11-2021 Free T4 [Mass/Vol] 1.5 ng/dL Normal 0.8-1.8 [facility] Comment on above: Order Comment: FASTI NG:NO FASTING: NO Performed By: #### 1 0231, 65196 #### [facility] [place] [address] [employer] Custodian: Jacek Dodge MD TSH Qn 0.39 m[IU]/L Low 0.40-4.50 [facility] Comment on above: Order Comment: FASTI NG:NO FASTING: NO Performed By: #### 1 0231, 42934 #### [facility] [place] [address] [employer] Custodian: Jacek Dodge MD Vital Signs Date Time Vital Sign Value Performing Clinician Facility 05-02-2024 13:02040 Body height 152.4 cm DO [email or web address] Work Phone: [facility] 05-02-2024 13:02-040 Body mass index (BMI) [Ratio] 31.6 kg/m2 DO [email or web address] Work Phone: [facility] 05-02-2024 13:02-040 Body weight 73.48 kg DO [email or web address] Work Phone: [facility] 05-02-2024 13:02-0400 Diastolic blood pressure 69 mm[Hg] DO [email or web address] Work Phone: [facility] 05-02-2024 13:02-0400 Heart rate 85 /min DO Jeff Furlong Work Phone: [facility] 05-02-2024 13:02-0400 Systolic blood pressure 118 mm[Hg] DO Jeff Furlong Work Phone: [facility] 09-27-2023 14:14-0400 Blood Pressure Location LUCY MIGUEL [facility] 09-27-2023 14:14-0400 Body temperature 98.24 [degF] LUCY MIGUEL [facility] 09-27-2023 14:14-0400 Diastolic blood pressure 84 mm[Hg] LUCY MIGUEL [facility] 09-27-2023 14:14-0400 Heart rate 92 /min LUCY MIGUEL [facility] 09-27-2023 14:14-0400 Systolic blood pressure 138 mm[Hg] LUCY MIGUEL [facility] 09-07-2023 09:23-0500 Body height 152.4 cm Jeff Furlong DO Work Phone: [facility] [employer] [facility] 09-07-2023 09:23-0500 Body mass index (BMI) [Ratio] 33.83 kg/m2 Jeff [facility]long DO [facility] 09-07-2023 09:23-0500 Body temperature 97.59 [degF] Jeff Furlong DO [facility] 09-07-2023 09:23-0500 Body weight 78.56 kg Jeff Furlong DO Work Phone: [employer] [facility] 09-07-2023 09:23-0500 Diastolic blood pressure 78 mm[Hg] Jeff Furlong DO Work Phone: [facility] 09-07-2023 09:23-0500 Heart rate 74 /min Jeff Furlong DO Work Phone: [facility] 09-07-2023 09:23-0500 SaO2% (BldA) [Mass fraction] 97 % Jfef Furlong DO Work Phone: [facility] 09-07-2023 09:23-0500 Systolic blood pressure 138 mm[Hg] Jeff Furlong DO Work Phone: [facility] 04-27-2023 14:15-0400 Body height 152.4 cm Dano Plasencia Other [employer] Other 04-27-2023 14:15-0400 Body mass index (BMI) [Ratio] 33.28 kg/m2 Dano Plasencia Other [employer] Other 04-27-2023 14:15-0400 Body weight 77.29 kg Dano Plasencia Other [employer] Other 04-27-2023 14:15-0400 Diastolic blood pressure 78 mm[Hg] Dano Plasencia Other [employer] Other 04-27-2023 14:15-0400 Systolic blood pressure 130 mm[Hg] Dano Plasencia Other [employer] Other 05-03-2022 15:11-0400 Blood Pressure Location Mihir Ceballos [facility] 05-03-2022 15:11-0400 Diastolic blood pressure 72 mm[Hg] Mihir MCGEE [facility] 05-03-2022 15:11-0400 Heart rate 55 /min Mihir MCGEE [facility] 05-03-2022 15:11-0400 Respiratory rate 16 /min Mihir MCGEE [facility] 05-03-2022 15:11-0400 Systolic blood pressure 131 mm[Hg] Mihir MCGEE [facility] 10-16-2021 11:30-0400 Body weight 82.56 kg Dano Plasencia Other [employer] Other Encounters Encounter Date Encounter Type Care Provider Facility Start: 06-07-2024 End: 06-07-2024 Refill Jeff Orellana DO Work Phone: [facility] Comment on above: Essential hypertensi on, benign Start: 05-18-2024 End: 05-18-2024 Orders Only Jeff Amorng DO Work Phone: [facility] Start: 05-18-2024 End: 05-18-2024 Refill Dena Eagle SPA DIRECTOR-COMPREHENSIVE OPHTHALMOLOGIST Work Phone: [facility] Start: 05-10-2024 End: 05-10-2024 Patient encounter procedure DO Jeff Whaleylong Work Phone: [facility] [place] Work Phone: Start: 05-10-2024 End: 05-10-2024 ambulatory DO Jeff Furlong Work Phone: [facility] Work Phone: Start: 05-02-2024 End: 05-02-2024 Patient encounter procedure DO Jeffmaryann Whaleylong Work Phone: [facility] Work Phone: Start: 04-17-2024 End: 04-17-2024 Patient encounter procedure DO Jeff Orellana Work Phone: [facility] Work Phone: Start: 04-17-2024 End: 04-17-2024 ambulatory DO Jeff Orellana Work Phone: [facility] Work Phone: Start: 01-17-2024 End: 01-17-2024 ambulatory [facility] Start: 12-27-2023 End: 12-27-2023 ambulatory [facility] Start: 09-27-2023 End: 09-28-2023 ambulatory CATHY-C LUCY RIVERA Facility:[facility] Start: 09-27-2023 End: 09-27-2023 Patient encounter procedure LUCY RIVERA [facility] Start: 09-20-2023 End: 09-21-2023 ambulatory MIHIR MCGEE [facility] Start: 09-07-2023 End: 09-08-2023 ambulatory JEFF WHALEYKATLYN [facility] Start: 09-07-2023 End: 09-07-2023 Office outpatient visit 25 minutes [facility]rellana DO [facility] Comment on above: Benign essential hyp ertension (Primary Dx); Type 2 diabetes mellitus without complication, without long-term current use of insulin ([facility]); Acquired hypothyroidism; Need for pneumococcal vaccine; Class 1 obesity due to excess calories with serious comorbidity and body mass index (BMI) of 33.0 to 33.9 in adult Start: 09-07-2023 End: 09-07-2023 ambulatory JEFF ORELLANA [facility] Start: 09-05-2023 Refill Jeffmaryann nicholas DO Work Phone[facility] Comment on above: Essential hypertensi on, benign Start: 08-16-2023 Refill Jeff Amor ng DO Work Phone: [facility] Start: 04-27-2023 End: 04-27-2023 ambulatory Dano Plasencia Other [employer] Other Start: 04-27-2023 Patient encounter procedure Dano MATOS Gastroenterology Start: 07-07-2022 End: 07-08-[address] JEFF Childress JOVANASANG Facility: Start: 05-03-2022 End: 05-03-2022 Patient encounter procedure Mihir MCGEE [facility] Start: 02-09-2022 End: 02-09-2022 Patient encounter procedure DO Jeff Orellana Work Phone: [facility] [place] Start: 10-30-2021 End: 10-30-2021 ambulatory Dano Plasencia Other [employer] Other Start: 10-30-2021 Telephone encounter Dano LYNCH G [facility] Start: 10-16-2021 End: 10-16-2021 ambulatory Dano Plasencia Other [employer] Other Start: 10-16-2021 [facility] visit new patient Dano MATOS Gastroenterology Procedures Date Procedure Procedure Detail Performing Clinician Start: 05-10-2024 Ultrasonography of abdomen DO [email or web address] Work Phone: Start: 04-17-2024 Ultrasound elastogra phy of liver DO [email or web address] Work Phone: Start: 02-08-2024 Adult depression scr eening assessment Jeff Orellana DO Work Phone: Start: 09-07-2023 Adult depression scr eening assessment Jeff Orellana DO Work Phone: Start: 07-12-2023 Mammography Jeff joaquin DO Work Phone: Start: 05-26-2023 Adult depression scr eening assessment Jeff Orellana DO Work Phone: Start: 03-08-2023 Diabetic retinal eye exam Jeff Orellana [employer] Work Phone: Start: 02-23-2023 Microalbumin [Mass/v olume] in Urine by Test strip Jeff Orellana DO Work Phone: Start: 10-02-2020 Extracorporeal shock wave lithotripsy of calculus of kidney Mihir MCGEE Start: 02-13-2020 Colonoscopy Mihir LIMA Hysterectomy Mihir MCGEE Ligation of fallopian tube P jane MCGEE Plan of Treatment Date Care Activity Detail Author Start: 02-17-2027 Screening for malign ant neoplasm of colon Colon Cancer Screening 5 Year Sigmoidoscopy [facility] [employer] [facility] Comment on above: Postponed from 04/05 (Not Indicated) Start: 02-07-2025 Adult BMI Screening [facility] Start: 02-07-2025 Depression Screening [facility] Scre [facility]ing [facility] Start: 02-07-2025 Diabetic foot examination Diabetic Foot [facility]am [facility] Start: 02-07-2025 Fall Risk Screening Fall [facility] Start: 02-07-2025 Tobacco Screening Tobacco [facility]ening [facility] Start: 01-17-2025 End: 01-17-2025 Patient encounter procedure 01/17/2025 1:40 PM EDT Office Visit [facility] [address] [place] [address] [facility] [address] [facility] Start: 01-16-2025 Medicare Annual Well ness Visit Medicare Annual Wellness Visit [facility] Start: 09-07-2024 Adult BMI Screening Adult BMI Screen ing [facility] Start: 09-07-2024 Depression Screening Depression Scre ening [facility] Start: 09-07-2024 Fall Risk Screening Fall Risk Screen ing [facility] Start: 09-07-2024 Tobacco Screening Tobacco Screening [facility] Start: 08-13-2024 End: 08-13-2024 Patient encounter procedure 08/13/2024 10:30 AM EST Office Visit [facility] [address] [place] [id number] Jeff Orellana, [address], [place] [address] [facility] Start: 07-18-2024 COVID-19 Vaccine ( season) COVID-19 Vaccine () [facility] Comment on above: Postponed from 03/18 (Patient Refused) Start: 07-12-2024 Screening for malign ant neoplasm of breast Mammogram [facility] Start: 05-26-2024 Adult BMI Screening Adult BMI Screen ing [facility] Start: 05-26-2024 Depression Screening Depression Scre ening [facility] Start: 05-26-2024 Fall Risk Screening Fall Risk Screen ing [facility] Start: 05-26-2024 Tobacco Screening Tobacco Screening [facility] Start: 04-17-[address] [facility] Start: 03-18-2024 COVID-19 Vaccine ( season) COVID-19 Vaccine () [facility] Start: 03-18-2024 Influenza vaccination Influenza Vacc ine [facility] Start: 03-08-2024 Glaucoma screening Diabetic Op hthalmology Exam [facility] Start: 03-07-2024 End: 03-07-2024 Patient encounter procedure 03/07/2024 9:30 AM EDT Office Visit [facility] [address] [place] [address] Jeff Orellana DO [address] [address] [facility] Start: 02-25-2024 Administration of varicella zoster vaccine Zoster (Shingles) Vaccine (1 of 2) [facility] Comment on above: Postponed from 04/05 (Patient Refused) Start: 02-25-2024 DTaP,Tdap and Td Vaccines (1 - Tdap) DTaP,Tdap and Td Vaccines (1 - Tdap) [facility] Comment on above: Postponed from 04/05 (Patient Refused) Start: 02-24-2024 Urine screening for protein Urine Microalbumin [facility] Start: 01-17-2024 End: 01-17-2024 Patient encounter procedure 01/17/2024 1:00 PM EDT Office Visit [facility] [address] [place] [address] [facility] Start: 01-07-2024 Medicare Annual Well ness Visit Medicare Annual Wellness Visit [facility] Start: 10-16-2023 Influenza vaccination Influenza Vacc ine [facility] Comment on above: Postponed from 03/18 (Patient Refused) Start: 09-07-2023 End: 09-07-2023 Patient encounter procedure 09/07/2023 9:20 AM EST Office Visit [facility] [address] [place] [address] Jeff Orellana DO [address] [place] [address] [facility] Start: 08-25-2023 Diabetic foot examination Diabetic Foot Exam [facility] Start: 03-18-2023 COVID-19 Vaccine ( season) COVID-19 Vaccine ( season) [facility] Start: 03-18-2023 Influenza vaccination Influenza Vacc ine [facility] Start: 2002 Administration of varicella zoster vaccine Zoster (Shingles) Vaccine (1 of 2) [facility] Start: 1997 Screening for malign ant neoplasm of colon Colon Cancer Screening 5 Year Sigmoidoscopy [facility] Start: 1971 DTaP,Tdap and Td Vaccines (1 - Tdap) DTaP,Tdap and Td Vaccines (1 - Tdap) [facility] Start: 1970 Adult BMI Follow Up Plan Adult BMI Follow Up Plan [facility] Start: 1952 Glaucoma screening Diabetic Op hthalmology Exam [facility] [id number]. tumo r marker [Mass/volume] in Serum or Plasma [facility] Comprehensive metabo lic 2000 panel - Serum or Plasma [facility] Immunizations Immunization Date Immunization Notes Care Provider Fa cility 09-07-2023 Pneumococcal Conjuga te 20-valent Jeff Furlong DO Work Phone: [facility] 09-07-2023 Immunization, In Clinic,; Translations: [Drug or medicament (substance)] Jeff Furlong DO Work Phone: [facility] 05-19-2022 Influenza, High-dose , Quadrivalent Jeff Furlong DO Work Phone: [facility] 05-19-2022 influenza virus vaccine, unspecified formulation Jeff Furlong DO Work Phone: [facility] 11-18-2021 SARS-CoV-2 (COVID-19 ) mRNA-1273 vaccine LUCY RIVERA [facility] 10-23-2020 COVID-19 mRNA-1273 (Moderna) DO Jeff Furlong Work Phone: [facility] 09-25-2020 COVID-19 mRNA-1273 (Moderna) DO Jeff Furlong Work Phone: [facility] 05-29-2020 influenza virus vaccine, unspecified formulation LUCY RIVERA [facility] 05-29-2020 Influenza, High-dose , Quadrivalent Jeff Furlong DO Work Phone: [facility] 04-30-2020 influenza virus vaccine, unspecified formulation LUCY RIVERA [facility] 04-30-2020 influenza, seasonal, injectable Jeff Furlong DO Work Phone: [facility] 04-21-2020 influenza virus vaccine, unspecified formulation Mihir MCGEE [facility] Payers Date Payer Category Payer Self-pay [id number] 2022 Medicare HMO [employer] [id number] 2022 Unknown JESSICA CASON [id number] 2022-Present [phone] [address] [place] [address] [id number] 2020 Unknown [id number] 1957 Medicare [id number] 1952 Unknown [id number] 1952 Unknown [id number] 1952 Unknown [id number] 1952 Unknown [id number] 1952 Unknown [id number] 1952 Unknown [id number] 1952 Unknown [id number] Unknown [id number] Unknown [id number] Social History Date Type Detail Facility Start: 01-06-2023 End: 02-08-2024 Sex Assigned At [facility] Start: 1950 Sex Assigned At Female F [facility] Start: 03-20-2021 End: 02-23-2023 Tobacco smoking status Ex-smoker (finding) [facility] History of tobacco use Current smoker [facility] History of tobacco use Cigarette Smoker P [facility] Start: 01-06-2023 End: 02-23-2023 Cigarettes smoked current (pack per day) - Reported 0.3 [facility] Start: 02-23-2023 Tobacco use and exposure Smoke less tobacco non-user [facility] Start: 05-26-2023 End: 02-08-2024 Alcohol intake Ex-drinker (finding) [facility] Do you belong to any clubs or organizations such as hindu groups, unions, fraternal or athletic groups, or school groups? No [facility] Are you now , , , , never or living with a partner? Never [facility] How often to you hav e a drink containing alcohol? Never [facility] How many standard dr inks containing alcohol do you have on a typical day? Patient does not drink [facility] Do you feel stress - tense, restless, nervous, or anxious, or unable to sleep at night because your mind is troubled all the time - these days [OSQ] Not at all [facility] Start: 1950 Sex Assigned At Not on file P [facility] Start: 02-20-2015 Sex Female (finding) [facility] Medical Equipment Procedure Code Equipment Code Equipment Origin al Text Equipment Identifier Dates 1 strip by other route in the morning. [id number] Start: 12-15-2022 USE 1 LANCET TO CHECK GLUCOSE ONCE DAILY DIRECTED [id number] Start: 09-23-2022 Goals Date Patient Goal Desired Activity /State Functional Status Date Assessment Result Facility 09-27-2023 Functional Status N/A [facility] 05-03-2022 Functional Status N/A [facility] Clinical Notes 01-13-2021 to 05-18-2024 Telephone Encounter - Rex Dior CMA - 05/18/2024 5:40 AM EDTTelephone Encounter - Rex Dior CMA - 05/18/2024 5:40 AM Allie Orlelana DO - 09/07/2023 9:20 AM EST Note Date & Type Note Facility 05-18-2024 Miscellaneous Notes Formattin g of this note might be different from the original. Pt called and would like to stop Trulicity unable to afford it. Also she would like to go back on Metformin and Glipizide. Pharmacy is listed and correct. documented in this encounter [facility] 11-01-2024 Telephone encount er Note Pt called and would like to stop Trulicity unable to afford it. Also she would like to go back on Metformin and Glipizide. Pharmacy is listed and correct. [facility] 09-27-2023 Note - From: Celestina Newton To: EU - Administrative; Sent: 09/27/2023 15:00:34 EDT Show up: 07/27/2024 15:00:00 EST Subject: Ambulatory Reminder Due Date/Time: 03/27/2025 15:00:00 EDT Reminder/Recall Schedule patient for an 18 month F/U with [facility], due in March of 2025 [facility] 09-27-2023 Hospital Discharg e instructions Patient Education 09/27/2023 14:56:09 Dietary Guidelines to Help Prevent Kidney Stones Dietary Guidelines to Help Prevent Kidney Stones Kidney stones are deposits of minerals and salts that form inside your kidneys. Your risk of developing kidney stones may be greater depending on your diet, your lifestyle, the medicines you take, and whether you have certain medical conditions. Most people can lower their risks of developing kidney stones by following these dietary guidelines. Your dietitian may give you more specific instructions depending on your overall health and the type of kidney stones you tend to develop. What are tips for following this plan? Reading food labels Choose foods with no salt added or low-salt labels. Limit your salt (sodium) intake to less than 1,500 mg a day. Choose foods with calcium for each meal and snack. Try to eat about 300 mg of calcium at each meal. Foods that contain 200 500 mg of calcium a serving include: ?8 oz (237 mL) of milk, pvmrdvb-ccmyldrmcgle-fdpah milk, and calcium-fortifiedfruit juice. Calcium-fortified means that calcium has been added to these drinks. ?8 oz (237 mL) of kefir, yogurt, and soy yogurt. ?4 oz (114 g) of tofu. ?1 oz (28 g) of cheese. ?1 cup (150 g) of dried figs. ?1 cup (91 g) of cooked broccoli. ?One 3 oz (85 g) can of sardines or mackerel. Most people need 1,000 1,500 mg of calcium a day. Talk to your dietitian about how much calcium is recommended for you. Shopping Buy plenty of fresh fruits and vegetables. Most people do not need to avoid fruits and vegetables, even if these foods contain nutrients that may contribute to kidney stones. When shopping for convenience foods, choose: ?Whole pieces of fruit. ?Pre-made salads with dressing on the side. ?Low-fat fruit and yogurt smoothies. Avoid buying frozen meals or prepared deli foods. These can be high in sodium. Look for foods with live cultures, such as yogurt and kefir. Choose high-fiber grains, such as whole-wheat breads, oat bran, and wheat cereals. Cooking Do not add salt to food when cooking. Place a salt shaker on the table and allow each person to add their own salt to taste. Use vegetable protein, such as beans, textured vegetable protein (TVP), or tofu, instead of meat in pasta, casseroles, and soups. Meal planning Eat less salt, if told by your dietitian. To do this: ?Avoid eating processed or pre-made food. ?Avoid eating fast food. Eat less animal protein, including cheese, meat, poultry, or fish, if told by your dietitian. To do this: ?Limit the number of times you have meat, poultry, fish, or cheese each week. Eat a diet free of meat at least 2 days a week. ?Eat only one serving each day of meat, poultry, fish, or seafood. ?When you prepare animal proteins, cut pieces into small portion sizes. For most meat and fish, one serving is about the size of the palm of your hand. Eat at least five servings of fresh fruits and vegetables each day. To do this: ?Keep fruits and vegetables on hand for snacks. ?Eat one piece of fruit or a handful of berries with breakfast. ?Have a salad and fruit at lunch. ?Have two kinds of vegetables at dinner. You may be told to limit foods that are high in a substance called oxalate. These include: ?Spinach (cooked), rhubarb, beets, sweet potatoes, and Kitt[place] chard. ?Peanuts. ?Potato chips, s[place] fries, and baked potatoes with skin on. ?Nuts and nut products. ?Chocolate. If you regularly take a diuretic medicine, make sure to eat at least 1 or 2 servings of fruits or vegetables that are high in potassium each day. These include: ?Avocado. ?Banana. ?Gooding, prune, carrot, or tomato juice. ?Baked potato. ?Cabbage. ?Beans and split peas. Lifestyle Drink enough fluid to keep your urine pale yellow. This is the most important thing you can do. Spread your fluid intake throughout the day. If you drink alcohol: ?Limit how much you have to: ?0 1 drink a day for women who are not . ?0 2 drinks a day for men. ?Know how much alcohol is in your drink. In the [place] one drink equals one 12 oz bottle of beer (355 mL), one 5 oz glass of wine (148 mL), or one 1 oz glass of hard liquor (44 mL). Lose weight if told by your health care provider. Work with your dietitian to find an eating plan and weight loss strategies that work best for you. General information Talk to your health care provider and dietitian about taking daily supplements. Depending on your health and the cause of your kidney stones, you may be told: ?Do not take high-dose supplements of vitamin C (1,000 mg a day or more). ?To take a calcium supplement. ?To take a daily probiotic supplement. ?To take other supplements such as magnesium, fish oil, or vitamin B6. Take psoh-skw-kqwmyck and prescription medicines only as told by your health care provider. These include supplements. What foods should I limit? Limit your intake of the following foods, or eat them as told by your dietitian. Vegetables Spinach. Rhubarb. Beets. Canned vegetables. Pickles. Olives. Baked potatoes with skin. Grains Wheat bran. Baked goods. Salted crackers. Cereals high in sugar. Meats and other proteins Nuts. Nut butters. Large portions of meat, poultry, or fish. Salted, precooked, or cured meats, such as sausages, meat loaves, and hot dogs. Dairy Cheeses. Beverages Regular soft drinks. Regular vegetable juice. Seasonings and condiments Seasoning blends with salt. Salad dressings. Soy sauce. Ketchup. Barbecue sauce. Other foods Canned soups. Canned pasta sauce. Casseroles. Pizza. Lasagna. Frozen meals. Potato chips. Kazakh fries. The items listed above may not be a complete list of foods and beverages you should limit. Contact a dietitian for more information. What foods should I avoid? Talk to your dietitian about specific foods you should avoid based on the type of kidney stones you have and your overall health. Fruits Grapefruit. The item listed above may not be a complete list of foods and beverages you should avoid. Contact a dietitian for more information. Summary Kidney stones are deposits of minerals and salts that form inside your kidneys. You can lower your risk of kidney stones by making changes to your diet. The most important thing you can do is drink enough fluid. Drink enough fluid to keep your urine pale yellow. Talk to your dietitian about how much calcium you should have each day, and eat less salt and animal protein as told by your dietitian. This information is not intended to replace advice given to you by your health care provider. Make sure you discuss any questions you have with your health care provider. Document Revised: 10/14/2022 Document Reviewed: 10/14/2022 [facility] Patient Education 2022 10X10 Room. Follow Up Care 09/20/2022 15:24:24 With:LUCY RIVERA PA-C, URL Address: [address] [place] [address]. [place] [address] When: Unknown [facility] 09-07-2023 History of Presen t illness Narrative Subjective Patient ID: Angela Juarez is a 73 y.o. female. Angela presents for diabetic recheck. She is taking her medications and tolerating them well. No hypoglycemic episodes. She hurt her foot and went to the staff auditor. Diabetes She presents for her follow-up diabetic visit. She has type 2 diabetes mellitus. No MedicAlert identification noted. Her disease course has been stable. There are no hypoglycemic associated symptoms. There are no diabetic associated symptoms. There are no hypoglycemic complications. Symptoms are stable. There are no diabetic complications. Risk factors for coronary artery disease include diabetes mellitus, dyslipidemia, obesity, sedentary lifestyle, post-menopausal and hypertension. Current diabetic treatment includes oral agent (dual therapy). She is compliant with treatment all of the time. Her weight is stable. She is following a generally healthy diet. When asked about meal planning, she reported none. She has not had a previous visit with a dietitian. She participates in exercise daily. There is no change in her home blood glucose trend. Her breakfast blood glucose range is generally 90-110 mg/dl. An LOTUS inhibitor/angiotensin II receptor geoffrey is being taken. She sees a staff auditor.Eye exam is current. The following portions of the patient's history were reviewed and updated as appropriate: allergies, current medications, past family history, past medical history, past social history, past surgical history, problem list, and medication reconciliation was completed including current medication and post discharge medication. Review of Systems Constitutional: Negative. HENT: Negative. Eyes: Negative. Respiratory: Negative. Cardiovascular: Negative. Gastrointestinal: Negative. Endocrine: Negative. Genitourinary: Negative. Musculoskeletal: Positive for arthralgias. Skin: Negative. Allergic/Immunologic: Negative. Neurological: Negative. Hematological: Negative. Psychiatric/Behavioral: Negative. Objective Physical Exam Vitals reviewed. Constitutional: General: She is not in acute distress. Appearance: She is obese. She is not ill-appearing. Cardiovascular: Rate and Rhythm: Normal rate and regular rhythm. Pulses: Normal pulses. Heart sounds: Normal heart sounds. No murmur heard. Pulmonary: Effort: Pulmonary effort is normal. No respiratory distress. Breath sounds: Normal breath sounds. No wheezing, rhonchi or rales. Neurological: General: No focal deficit present. Mental Status: She is alert and oriented to person, place, and time. Cranial Nerves: Cranial nerves 2-12 are intact. Gait: Gait is intact. Psychiatric: Attention and Perception: Attention normal. Mood and Affect: Mood and affect normal. Speech: Speech normal. Behavior: Behavior normal. Behavior is cooperative. Thought Content: Thought content normal. Cognition and Memory: Cognition normal. Judgment: Judgment normal. Assessment/Plan Angela was seen today for diabetes. Diagnoses and all orders for this visit: Benign essential hypertension - Basic Metabolic Panel; Future BP borderline high. Check BMP. Monitor BP at home. Continue current regimen. Type 2 diabetes mellitus without complication, without long-term current use of insulin ([facility]) - Hemoglobin A1c; Future Check A1c. Acquired hypothyroidism - TSH; Future - T4, free; Future Check TSH and T4 Need for pneumococcal vaccine - Pneumococcal Conjugate 20-Valent Recommended prevnar 20-pt agrees Class 1 obesity due to excess calories with serious comorbidity and body mass index (BMI) of 33.0 to 33.9 in adult She is obese. She would benefit from wt loss. It is contributing to diabetes, HTN and hyperlipidemia. Other orders - b complex vitamins tablet; Take 1 tablet by mouth in the morning. documented in this encounter [facility] 04-27-2023 Evaluation note Encounter Date Diagnosis Assessment Notes Apr, Fatty liver (ICD-10 - K76.0) Patient reports that she is loosing weight Patient is advised to see weight management she declines at this time Patient reports that it is difficult for her to exercise due to arthritis Patient reports that she did have labs done with her PCP and a records release will be obtained Patient is advised to repeat FibroScan in the spring RTO 1 year [facility] Other 10-17-2022 Hospital Discharge instructions Patient Education 05/03/2022 16:04:13 Kidney Stones, Kcsy-hy-Hble Kidney Stones Kidney stones are rock-like masses that form inside of the kidneys. Kidneys are organs that make pee (urine). A kidney stone may move into other parts of the urinary tract, including: The tubes that connect the kidneys to the bladder (ureters). The bladder. The tube that carries urine out of the body (urethra). Kidney stones can cause very bad pain and can block the flow of pee. The stone usually leaves your body (passes) through your pee. You may need to have a doctor take out the stone. What are the causes? Kidney stones may be caused by: A condition in which certain glands make too much parathyroid hormone (primary hyperparathyroidism). A buildup of a type of crystals in the bladder made of a chemical called uric acid. The body makes uric acid when you eat certain foods. Narrowing (stricture) of one or both of the ureters. A kidney blockage that you were born with. Past surgery on the kidney or the ureters, such as gastric bypass surgery. What increases the risk? You are more likely to develop this condition if: You have had a kidney stone in the past. You have a family history of kidney stones. You do not drink enough water. You eat a diet that is high in protein, salt (sodium), or sugar. You are overweight or very overweight (obese). What are the signs or symptoms? Symptoms of a kidney stone may include: Pain in the side of the belly, right below the ribs (flank pain). Pain usually spreads (radiates) to the groin. Needing to pee often or right away (urgently). Pain when going pee (urinating). Blood in your pee (hematuria). Feeling like you may vomit (nauseous). Vomiting. Fever and chills. How is this treated? Treatment depends on the size, location, and makeup of the kidney stones. The stones will often pass out of the body through peeing. You may need to: Drink more fluid to help pass the stone. In some cases, you may be given fluids through an IV tube put into one of your veins at the hospital. Take medicine for pain. Make changes in your diet to help keep kidney stones from coming back. Sometimes, medical procedures are needed to remove a kidney stone. This may involve: A procedure to break up kidney stones using a beam of light (laser) or shock waves. Surgery to remove the kidney stones. Follow these instructions at home: Medicines Take cuto-xtj-tbbhzkp and prescription medicines only as told by your doctor. Ask your doctor if the medicine prescribed to you requires you to avoid driving or using heavy machinery. Eating and drinking Drink enough fluid to keep your pee pale yellow. You may be told to drink at least 8 10 glasses of water each day. This will help you pass the stone. If told by your doctor, change your diet. This may include: ?Limiting how much salt you eat. ?Eating more fruits and vegetables. ?Limiting how much meat, poultry, fish, and eggs you eat. Follow instructions from your doctor about eating or drinking restrictions. General instructions Collect pee samples as told by your doctor. You may need to collect a pee sample: ?24 hours after a stone comes out. ?8 12 weeks after a stone comes out, and every 6 12 months after that. Strain your pee every time you pee (urinate), for as long as told. Use the strainer that your doctor recommends. Do not throw out the stone. Keep it so that it can be tested by your doctor. Keep all follow-up visits as told by your doctor. This is important. You may need follow-up tests. How is this prevented? To prevent another kidney stone: Drink enough fluid to keep your pee pale yellow. This is the best way to prevent kidney stones. Eat healthy foods. Avoid certain foods as told by your doctor. You may be told to eat less protein. Stay at a healthy weight. Where to find more information National Kidney Foundation (NKF): www.kidney.org [employer] (UCF): www.urologyhealth.org Contact a doctor if: You have pain that gets worse or does not get better with medicine. Get help right away if: You have a fever or chills. You get very bad pain. You get new pain in your belly (abdomen). You pass out (faint). You cannot pee. Summary Kidney stones are rock-like masses that form inside of the kidneys. Kidney stones can cause very bad pain and can block the flow of pee. The stones will often pass out of the body through peeing. Drink enough fluid to keep your pee pale yellow. This information is not intended to replace advice given to you by your health care provider. Make sure you discuss any questions you have with your health care provider. Document Released: 12/20/2008 Document Revised: 11/20/2019 Document Reviewed: 11/20/2019 [employer] Patient Education 2019 10X10 Room. Follow Up Care 03/20/2021 11:53:25 With:ARELY NIEVES, Mihir Marrufo, URL Address: [facility] [address] , [place] [address]- [phone] When:09/03/2022 [facility] 04-01-2022 Evaluation note* Encounter Date Diagnosis Assessment Notes Treatment Notes Treatment Clinical Notes Oct, Fatty liver (ICD-10 - K76.0) PATIENT IS ADVISED WE WILL ORDER SOME LABS AT THIS TIME. PATIENT ADVISED WE WILL ORDER FIBROSCAN. Oct, Dyspepsia (ICD-10 - R10.13) Oct, Abdominal discomfort (ICD-10 - R10.9) PATIENT DID HAVE SOME DISCOMFORT ON THE LEFT SIDE AND FOUL SMELLING BREATH FOR 1 EPISODE. PROCEED WITH EGD Oct, Other PATIENT DID HAV E PREVIOUS EGD/COLONOSCOPY [facility] Other 06-29-2021 Reason for visit NarrativePATIENT HERE AT THE REQUEST OF DR. ORELLANA FOR EVALUATION & TREATMENT OF FATTY INFILTRATION OF Humaira CHAIDEZ, PATIENT STATES THI WAS FOUND LAST YEAR AT A ROUTINE OFFICE VISIT. PATIENT DENIES ANY FAMILY HISTORY OF [facility] [employer] Other Evaluation + Plan note Future Appointments Appointment Date:09/20/2022 02:45:00 PM Scheduled Provider:Mihir MCGEE MD Location:[facility] Appointment Type:URO Office Visit [facility] evaluation noteNo InformationNort [employer] Other Evaluation noteNo assessment information available [facility] Work Phone: Evaluation note* Diagnosis Essential hypertension, benign documented in this encounter [facility] System[facility]* Diagnosis Benign essential hypertension- Primary Essential hypertension, benign Type 2 diabetes mellitus without complication, without long-term current use of insulin ([facility]) Acquired hypothyroidism Unspecified hypothyroidism Need for pneumococcal vaccine Need for prophylactic vaccination against streptococcus pneumoniae (pneumococcus) Class 1 obesity due to excess calories with serious comorbidity and body mass index (BMI) of 33.0 to 33.9 in adult documented in this encounter [facility] SystemEvaluation [facility]* Diagnosis Onset Date Resolution Status Cirrhosis acute Fatty liver acute Metabolic dysfunction-associated steatohepatitis (MASH ) acute [facility] Work Phone: Evaluation note* Diagnosis Essential hypertension, benign documented in this encounter [facility] [employer] SystemHistory general Narrative - Reported* Type Description Date Surgical History hysterectomy [facility] Other History general Narrative - Reported* Type Description Date Medical History high cholesterol Medical History diabetes mallitus Medical History high blood pressure Surgical History hysterectomy [facility] Other Hospital course Narrative No data available for this section [facility] InstructionsNot on filedocumented in this encounter [facility] filedocumented in this encounter [facility]ructionsNot on filedocumented in this encounter [facility]ructionsNot on filedocumented in this encounter [facility] SystemInstructionsNot on filedocumented in this encounter [facility]InstructionsNot on filedocumented in this encounter [facility] No data available for this section [facility] Summary Purpose Family History No Family History Records Found Relationship Condition Age at Onset Recorded Date/T fredis father Malignant neoplasm of prostate Unknown brother Leukemia Unknown Not Specified Cerebrovascular accident (CVA) Unknown daughter Malignant neoplasm Unknown Relationship Condition Age at Onset Recorded Date/T fredis father Malignant neoplasm of prostate Unknown brother Leukemia Unknown mother Cerebrovascular accident (CVA) Unknown daughter Malignant neoplasm Unknown father Malignant neoplasm Unknown Unknown Family history of other condition Unknown mother History of stroke Unknown Hypertension Unknown Advance Directives No Advanced Directives Records Found Advance Directive Response Recorded Date/ Time Advance Directives No October 19 1:48pm Chief Complaint and Reason for Visit Chief Complaint K76.0 Chief Complaint fatty liver Chief Complaint fatty liver 1 yr f/u-fatty liver K76.0 Reason for Visit Cirrhosis Fatty liver Metabolic dysfunction-associated steatohepatitis (MASH) Additional Source Comments REASON FOR VISIT (unrecogniz ed section and content) Reason Comments Med Refill Reason Comments Diabetes INFORMATION SOURCE (unrecogn ized section and content) DATE CREATED AUTHOR 03/13/2022 [facility] DATE CREATED AUTHOR AUTHOR'S ORGANIZ ATION 07/15/2022 [facility] DATE CREATED AUTHOR AUTHOR'S ORGANIZ ATION 09/15/2023 [facility] DATE CREATED AUTHOR AUTHOR'S ORGANIZ ATION 09/21/2023 [facility] DATE CREATED AUTHOR AUTHOR'S ORGANIZ ATION 10/05/2023 [facility] DATE CREATED AUTHOR AUTHOR'S ORGANIZ ATION 01/18/2024 [facility] DATE CREATED AUTHOR AUTHOR'S ORGANIZ ATION 07/17/2024 [facility] Care Teams (unrecognized sec tion and content) Team Status: Active Member Role Status Dates Jeff Orellana DO Primary Care Provider Active Team Status: Inactive Member Role Status Dates Jeff Orellana DO Primary Care Provider Active Start: April 17, 2024 End: April 17, 2024 Dano Plasencia MD Attending Provider Active S tart: April 17, 2024 End: April 17, 2024 Team Status: Inactive Member Role Status Dates Jeff Orellana DO Primary Care Provider Active Dano Plasencia MD Attending Provider Active Forensic Psychologist Relationship Specialty Start Date End Date Jeff Orellana [address] [place] [address] PCP - General Family Medicine 02/13/20 Forensic Psychologist Relationship Specialty Start Date End Date JovanacatinaJeff nicholas [address] [place] [address] PCP - General Family Medicine 02/13/20 Forensic Psychologist Relationship Specialty Start Date End Date Jeff Orellana DO [address] [place] [address] PCP - General Family Medicine 02/13/20 Team Status: Inactive Member Role Status Dates Jeff Orellana DO Primary Care Provider Active Start: May 02, 2024 End: May 02, 2024 Dano Plasencia MD Attending Provider Active S tart: May 02, 2024 End: May 02, 2024 Team Status: Inactive Member Role Status Dates Jeff Orellana DO Primary Care Provider Active Start: May 10, 2024 End: May 10, 2024 Dano Plasencia MD Attending Provider Active S tart: May 10, 2024 End: May 10, 2024 Forensic Psychologist Relationship Specialty Start Date End Date Jeff Orellana DO [address] [place] [address] PCP - General Family Medicine 02/13/20 Forensic Psychologist Relationship Specialty Start Date End Date Jeff Orellana DO [address] [place] [address] PCP - General Family Medicine 02/13/20 Forensic Psychologist Relationship Specialty Start Date End Date Jeff Orellana DO [address] [place] [address] PCP - General Family Medicine 02/13/20 Goals (unrecognized section and content) Goals may be documented in a n alternate section FOR RECORDS PERTAINING TO PATIENTS WHO ARE OR HAVE BEEN ENROLLED IN A CHEMICAL DEPENDENCY/SUBSTANCEABUSE PROGRAM, SOME INFORMATION MAY BE OMITTED. This clinical summary was aggregated from multiple sources. Caution should be exercised in using it in the provision of clinical care. This summary normalizes information from multiple sources, and as a consequence, information in this document may materially change the coding, format and clinical context of patient data. In addition, data may be omitted in some cases. CLINICAL DECISIONS SHOULD BE BASED ON THE PRIMARY CLINICAL RECORDS. [employer] [facility] provides no warranty or guarantee of the accuracy or completeness of information in this document.
== END 2024-07-19 10:49 | disposition home or self-care (01) ==
LOC: MAMMO 10:48
PROVIDERS: PCP Family Medicine; Visit Provider Family Medicine
DX: Z12.31 Encounter for screening mammogram for malignant neoplasm of breast (principal); Z80.0 Family history of malignant neoplasm of digestive organs; Z80.8 Family history of malignant neoplasm of other organs or systems; Z80.42 Family history of malignant neoplasm of prostate; Z80.6 Family history of leukemia
CPT/HCPCS: 77063; 77067